=== PATIENT | female | born 1995 | race Caucasian/White ===

== ENCOUNTER → 2018-03-19 12:35 | Outpatient (CLI) | payer SELFPAY ==
[2018-03-19 13:25] LABS: Eosinophils # 0.1 K/mm3 (0.0-0.4); Eosinophils % 0.8 % (0.1-12.0); Hemoglobin 11.4 g/dL (12.2-16.2); Lymphocytes % 25.1 % (10-50); Mean Corpuscular HGB Conc 30.9 g/dL (31.8-35.4); Mean Corpuscular Hemoglobin 24.7 pg (27.0-31.2); Mean Corpuscular Volume 80.1 fl (81-99); Mean Platelet Volume 7.6 fl (7.4-10.4); Monocytes # 0.3 K/mm3 (0.1-1.0); Monocytes % 3.5 % (1.7-9.3); Neutrophils # 5.8 K/mm3 (1.8-7.8); Neutrophils % 70.6 % (37.0-80.0); Platelet Count 320 K/mm3 (142-424); Red Blood Count 4.62 M/mm3 (4.20-5.40); White Blood Count 8.1 K/mm3 (4.8-10.8)
[2018-03-19 14:47] LABS: Alanine Aminotransferase 21 U/L (12-78); Albumin Level 3.8 gm/dL (3.4-5.0); Alkaline Phosphatase 84 U/L (46-116); Aspartate Amino Transferase 17 U/L (15-37); Bilirubin,Total 0.4 mg/dL (0.2-1.0); Blood Urea Nitrogen 12 mg/dL (7-18); Calcium 8.5 mg/dL (8.5-10.1); Carbon Dioxide 23 mmol/L (21.0-32.0); Chloride 102 mmol/L (98-107); Creatinine,Serum 0.83 mg/dL (0.55-1.02); Estimated Glomerular Filt Rate 86 ml/min (>60); Free T4 (Free Thyroxine) 0.85 ng/dl (0.76-1.46); GFR (African American) 104 ML/MIN (>60); Globulin 3.7 gm/dl (1.3-3.2); Glucose 91 mg/dL (74-106); Sodium 138 mmol/L (136-145); Thyroid Stimulating Hormone 0.65 uIU/ml (0.358-3.740); Total Protein,Serum 7.5 gm/dL (6.4-8.2)
[2018-03-20 09:43] LABS: Thyroid Peroxidase Antibodies 457 IU/mL (0-34)
[2018-03-21 06:54] LABS: Antinuclear Antibodies, IFA Negative (.); Thyroglobulin Level 6.6 IU/mL (0.0-0.9)
[2018-04-09 17:19] LABS: Beef (Bos spp) IgE <0.10 kU/L (<0.35); Lamb/Mutton (Ovis spp) IgE <0.10 kU/L (<0.35)
== END ==
PROVIDERS: Visit Provider Allergy & Immunology
DX: L50.8 Other urticaria (principal)
CPT/HCPCS: 36415; 80053; 83520; 84439; 84443; 85025; 86003; 86008; 86038; 86352; 86376; 86800

== ENCOUNTER 2020-12-17 10:30 | Emergency (ER) | payer BC, SELFPAY ==
[2020-12-17 11:30] VITALS: BP 142/88; PULSE 94; RESP 21; TEMP 37.1; O2SAT 97; BMI 38.0
--- NOTE | 2020-12-17 11:53 | HMH.EDUTC ---
[facility] Disposition Clinical Impression: Exposure to COVID-19 virus Disposition: Home, Self-Care Condition on Discharge: Good Instructions: DI for COVID-19 (Suspected or Confirmed ), Preventing the Spread of Coronavirus Discharge Instructions Additional Instructions: *Monitor Temp, Over the counter Motrin or Tylenol as directed/as needed Tylenol every 4 hours and Motrin every 6 hours (as long as your family doctor has told you that you can take it) for fever or pain. and straight to ER if unable to lower temp less than 101.0 after medication given *Warm salt water gargles may help to soothe the throat *Throat Lozenges *Warm fluids like tea with honey may help to soothe the throat *Sleep elevated *Humidifier/Vaporizer Follow up IMMEDIATELY for new or worsening symptoms or no Noticeable improvement over the next 48-72 hours. 911 for difficulty breathing or swallowing You were tested for today for COVID19 your test result should be back in the next 24-48 hours, You was given written instructions for [facility] portal you can see your results there when they come back you may check it often to see if they are done You was given a handout with instructions for Self Quarantine and Self isolation for while you wait on test results and what to do if they are positive If you are positive the Health Dept will be contacting you also Make sure to take your Vitamins Vit. C Vit D and Zinc if you can take them Referrals: Vito Brooks [Primary Care Provider] - As needed Forms: Work/School Release Medical Decision Making - Beltran Inquiry Pt receiving controlled substance: No Beltran was queried for this patient: No Vital Signs: 12/17/20 11:30 Temperature 98.7 F Temperature Source Oral Pulse Rate [Right Brachial] 94 H Respiratory Rate 21 Blood Pressure [Right Arm] 142/88 H Blood Pressure Mean [Right Arm] 106 Blood Pressure Source [Right Arm] Automatic Cuff Blood Pressure Position [Right Arm] Sitting 02 Sat by Pulse Oximetry 97 Oxygen Delivery Method Room Air Orders (Tests/Meds): ORDERS Category Date Time Status Covid-19 Nasal PCR ([facility]) Routine Lab 12/17/20 11:31 Ordered [facility] HPI - General Stated complaint: covid exposure test Time Seen by Provider: 12/17/20 11:53 Mode of Arrival: Ambulatory Source of Information: Patient Limitations: No Limitations Description of Symptoms (Recalled from Triage Doc. by RN): COVID TEST D/T EXPOSURE. C/O CONGESTION, RUNNY NOSE AND HEADACHE HEENT Symptoms (Recalled from RN notes): Yes Resp Symptoms (Recalled from RN notes): No Skin Symptoms (Recalled from RN notes): No MS Symptoms (Recalled from RN notes): No Functional Status (Recalled from RN notes): WNL - History of Present Illness Provider Complaint: Patient states that recently tested positive for COVID now she is having symptoms also States that she is having nasal congestion, and throat irritationStates that she has not been having any SOA but wanted to get tested - Related Data Allergies Allergy/AdvReac Type Severity Reaction Status Date / Time No Known Allergies Allergy Verified 09/05/17 17:19 - Worker's Comp Is this a Worker's Comp case?: No [facility] History - Hepatitis A Screen Drug use history?: No High risk sexual behaviors?: No History of sexually transmitted infection?: No Currently employed?: No Childcare worker?: No Do you have indoor plumbing?: Yes Do you have electricity?: Yes Attestation statement:: This patient has been screened for Hepatitis A risk factors. I have reviewed the patient's past medical history: Yes Medical History: Denies:: Cancer, Diabetes Mellitus Type 1, Diabetes Mellitus Type 2, Hypertension, MRSA Other Medical History: Denies: Other (allergies) Other Surgeries: Yes: No Previous Surgery Amputation: No Fractures: No - Social History Smoking Status: Never smoker Tobacco Type: cigarettes # Packs/Day (cigarettes): 1 Alcohol Intake: never Family Hx:: No si
[2020-12-17 12:03] VITALS: BP 142/88; PULSE 94; RESP 21; TEMP 37.1; O2SAT 97
--- NOTE | 2020-12-18 12:16 | PC.NURSE ---
PT NOTIFIED OF POSITIVE COVID RESULT
== END 2020-12-17 12:05 | disposition home or self-care (01) ==
PROVIDERS: Emergency Provider Nurse Practitioner; PCP Family Medicine
DX: Z20.822 Contact with and (suspected) exposure to COVID-19 (principal); R51.9 Headache, unspecified; R09.89 Other specified symptoms and signs involving the circulatory and respiratory systems
CPT/HCPCS: 99202; G0463; U0003

== ENCOUNTER → 2021-04-03 20:30 | Outpatient (CLI) | payer BC, SELFPAY | PROVIDERS: PCP Family Medicine; Visit Provider Nurse Practitioner | DX: Z20.822 Contact with and (suspected) exposure to COVID-19 (principal) | CPT/HCPCS: C9803; U0003; U0005 ==

== ENCOUNTER → 2021-05-11 11:23 | Outpatient (CLI) | payer BC, SELFPAY ==
[2021-05-12 13:06] LABS: Covid-19 Nasal PCR Sendout Lex POSITIVE
== END ==
PROVIDERS: Visit Provider Nurse Practitioner
DX: U07.1 COVID-19 (principal)
CPT/HCPCS: C9803; U0004; U0005

== ENCOUNTER 2021-08-25 18:32 | Emergency (ER) | payer BC, SELFPAY ==
[2021-08-25 18:32] VITALS: BP 121/73; PULSE 89; RESP 16; TEMP 36.7; O2SAT 100; BMI 34.0
--- NOTE | 2021-08-25 18:37 | PC.NURSE ---
patient ambulatory to restroom without complications to provide urine sample
--- NOTE | 2021-08-25 18:42 | PC.NURSE ---
JACINTO sent to lab; No Felix, RN at
[2021-08-25 18:45] LABS: Microscopic, Urine URINE MICROSCOPIC (MICROSCOPIC)
[2021-08-25 18:50] LABS: Appearance,Urine CLEAR (Clear); Bilirubin,Urine Negative (Negative); Blood, Urine Negative (Negative); Color,Urine YELLOW (Yellow); Glucose,Urine (UA) Negative (Negative); Ketones,Urine Negative (Negative); Leukocyte Esterase,Urine Negative (Negative); Nitrate,Urine Negative (Negative); Protein,Urine Negative (Negative); Specific Gravity, Urine >= 1.030 (1.005-1.030); Urobilinogen,Urine 0.2 EU/dl (0.2)
[2021-08-25 18:56] LABS: Mucus,Urine 2+ /lpf; Urine Pregnancy, HCG Qual. Negative (Negative)
--- NOTE | 2021-08-25 18:58 | CT_ITS ---
PROCEDURE INFORMATION: Exam: CT Abdomen And Pelvis With Contrast Exam date and time: 08/25/2021 7:09 PM Age: 25 years old Clinical indication: Abdominal pain; Epigastric; Prior surgery; Additional info: Epigastric pain TECHNIQUE: Imaging protocol: Computed tomography of the abdomen and pelvis with contrast. Radiation optimization: All CT scans at this facility use at least one of these dose optimization techniques: automated exposure control; mA and/or kV adjustment per patient size (includes targeted exams where dose is matched to clinical indication); or iterative reconstruction. Contrast material: ISOVUE; Contrast volume: 75 ml; Contrast route: IV; COMPARISON: PRCOE US PREG COMP 10/11/2016 1:05 PM FINDINGS: Liver: Normal. No mass. Gallbladder and bile ducts: Calcified gallstones within the gallbladder lumen. Pancreas: Normal enhancement. No ductal dilation. Spleen: No splenomegaly. Adrenal glands: No mass. Kidneys and ureters: No hydronephrosis. Stomach and bowel: No obstruction. No mucosal thickening. Appendix: No evidence of appendicitis. Intraperitoneal space: No free air. No significant fluid collection. Vasculature: No abdominal aortic aneurysm. Lymph nodes: No enlarged lymph nodes. Urinary bladder: No acute abnormality. Reproductive: 2.5 cm right ovarian follicle. Fluid within the endometrial canal. Bones/joints: S shaped curvature of the spine. No fracture. Soft tissues: Extensive subcutaneous adipose extending beyond the field of view. IMPRESSION: No acute findings.
--- NOTE | 2021-08-25 18:58 | HMH.EDGENADL ---
ED Disposition Clinical Impression: Epigastric pain Disposition: Home, Self-Care Condition on Discharge: Good Instructions: DI for Acute Abdominal Pain, Fat-Restricted Diet Additional Instructions: Pepcid as prescribed. Follow-up with your primary care provider to arrange outpatient gallbladder ultrasound. Low-fat diet. Additional instructions for ABDOMINAL PAIN: See your physician as soon as possible for further evaluation. Return immediately if worsening abdominal pain, vomiting, shortness of breath, fever, vomiting of blood or abdominal distention. Prescriptions: Famotidine [Pepcid 20mg Tablet] 20 mg PO BID 5 Days #10 tab Transmission Status: Pending to [facility] Referrals: Vito Brooks [Primary Care Provider] - - Critical Care Critical Care Time: No Attestation: On 08/25/21, the high probability of a clinically significant, sudden or life threatening deterioration of the following system(s) required my full and direct attention, intervention and personal management. The time I documented below is in addition to time spent performing reported procedures but includes the following listed in this critical care notation. Medical Decision Making - Beltran Inquiry Pt receiving controlled substance: No Vital Signs: 08/25/21 18:32 Temperature 98.1 F Temperature Source Oral Pulse Rate [Right] 89 Respiratory Rate 16 Blood Pressure [Right Arm] 121/73 Blood Pressure Mean [Right Arm] 89 Blood Pressure Source [Right Arm] Automatic Cuff Blood Pressure Position [Right Arm] Sitting 02 Sat by Pulse Oximetry 100 Oxygen Delivery Method Room Air - Lab Data Lab Results 08/25/21 18:41: Urine Color Yellow, Urine Appearance Clear, Urine pH 5.0, Ur Specific [place] >= 1.030, Urine Protein Negative, Urine Glucose (UA) Negative, Urine Ketones Negative, Urine Blood Negative, Urine Nitrate Negative, Urine Bilirubin Negative, Urine Urobilinogen 0.2, Ur Leukocyte Esterase Negative, Urine WBC 3-5, Ur Squamous Epith Cells 5-10, Urine Mucus 2+ 08/25/21 18:41: Urine HCG, Qual Negative 08/25/21 18:50: WBC 10.9 H, RBC 5.03, Hgb 13.9, Hct 41.1, MCV 81.7, MCH 27.6, MCHC 33.8, RDW 13.6, Plt Count 285, MPV 8.9, Neut % (Auto) 64.1, Lymph % (Auto) 29.3, [place] % (Auto) 4.9, Eos % (Auto) 0.2, Baso % (Auto) 1.6, Neut # (Auto) 7.0, Lymph # (Auto) 3.2, [place] # (Auto) 0.5, Eos # (Auto) 0.0, Baso # (Auto) 0.2 08/25/21 18:50: Sodium 136, Potassium 3.8, Chloride 104, Carbon Dioxide 24, Anion Gap 11.8, BUN 15, Creatinine 0.60, Estimated Creat Clear 197, Estimated GFR 122, Est GFR ( Amer) 147, Glucose 106 H, Calcium 9.6, Total Bilirubin 0.6, AST 41 H, ALT 24, Alkaline Phosphatase 91, Total Protein 7.1, Albumin 4.1, Globulin 3.0, Albumin/Globulin Ratio 1.4 08/25/21 18:50: Lipase 135 Result diagrams: 08/25/21 18:50 08/25/21 18:50 Orders (Tests/Meds): ED MEDICATIONS Generic Name Dose Route Start Last Admin Trade Name Freq PRN Reason Stop Dose Admin Sodium Chloride 1,000 mls @ 999 mls/hr 08/25/21 19:00 08/25/21 19:00 Sod Chlor 0.9% 1000ml Bag IV 08/25/21 20:00 999 mls/hr .Q1H1M RANDALL Administration Sodium Chloride 10 ml 08/25/21 18:58 Sodium Chloride 0.9% 10ml Flush Syringe IV 09/24/21 18:57 NEEDED PRN Maintain IV Site Sodium Chloride 8 ml 08/25/21 19:06 Sodium Chloride 0.9% 10ml Vial IV 09/24/21 19:05 NEEDED PRN dilute pepcid Discontinued Medications Generic Name Dose Route Start Last Admin Trade Name Freq PRN Reason Stop Dose Admin Famotidine 20 mg 08/25/21 19:06 08/25/21 19:47 Famotidine 20mg/2ml Vial IV 08/25/21 19:07 20 mg ONCE ONE Administration Iopamidol 75 ml 08/25/21 19:28 08/25/21 19:28 Iopamidol-370 (76%);100ml Bottle IV 08/25/21 19:29 75 ml ONCE ONE Administration Sodium Chloride 10 ml 08/25/21 19:28 08/25/21 19:28 Sodium Chloride 0.9% 10ml Syr (Rad Only) IV 08/25/21 19:29 10 ml ONCE ONE Administration -
[2021-08-25 19:07] LABS: Basophils # 0.2 K/mm3 (0-0.2); Basophils % 1.6 % (0.1-2.0); Chloride 104 mmol/L (98-107); Eosinophils % 0.2 % (0.1-12.0); Hematocrit 41.1 % (37.0-47.0); Hemoglobin 13.9 g/dL (12.2-16.2); Lymphocytes # 3.2 K/mm3 (0.7-4.5); Lymphocytes % 29.3 % (10-50); Mean Corpuscular HGB Conc 33.8 g/dL (31.8-35.4); Mean Corpuscular Hemoglobin 27.6 pg (27.0-31.2); Mean Corpuscular Volume 81.7 fl (81-99); Mean Platelet Volume 8.9 fl (7.4-10.4); Monocytes # 0.5 K/mm3 (0.1-1.0); Monocytes % 4.9 % (1.7-9.3); Neutrophils % 64.1 % (37.0-80.0); Platelet Count 285 K/mm3 (142-424); Potassium 3.8 mmoL/L (3.5-5.1); Red Blood Count 5.03 M/mm3 (4.20-5.40); Red Cell Distribution Width 13.6 % (11.5-17.5); Sodium 136 mmol/L (136-145); White Blood Count 10.9 K/mm3 (4.8-10.8)
[2021-08-25 19:09] LABS: Blood Urea Nitrogen 15 mg/dl (7-17); Creatinine Clearance Estimated 197 mL/min (50-200); Estimated Glomerular Filt Rate 122 ml/min (>60); GFR (African American) 147 ML/MIN (>60)
[2021-08-25 19:10] LABS: Alanine Aminotransferase 24 U/L (12-78); Albumin Level 4.1 g/dl (3.5-5.0); Albumin/Globulin Ratio 1.4 (1.1-1.8); Alkaline Phosphatase 91 U/L (38-126); Anion Gap 11.8 mEq/L (5-15); Aspartate Amino Transferase 41 U/L (14-36); Bilirubin,Total 0.6 mg/dl (0.2-1.3); Calcium 9.6 mg/dl (8.4-10.2); Carbon Dioxide 24 mmol/L (22.0-30.0); Glucose 106 mg/dl (74-100); Total Protein,Serum 7.1 g/dl (6.3-8.2)
[2021-08-25 19:19] LABS: Lipase 135 U/L (23-300)
[2021-08-25 20:19] VITALS: BP 120/71; PULSE 88; RESP 16; TEMP 36.7; O2SAT 100
== END 2021-08-25 20:22 | disposition home or self-care (01) ==
PROVIDERS: Emergency Provider Emergency Medicine; PCP Family Medicine
DX: R10.13 Epigastric pain (principal)
CPT/HCPCS: 74177; 80053; 81001; 81025; 83690; 85025; 96365; 96375; 99284; Q9967

== ENCOUNTER 2021-12-23 19:54 | Observation (INO) | payer BC, SELFPAY ==
[2021-12-23] VITALS (8 sets, daily range): BP systolic 106–130; BP diastolic 64–76; PULSE 68–78; RESP 16; TEMP 38.2; O2SAT 96–99; BMI 34.3
[2021-12-23 20:30] LABS: Basophils # 0.1 K/mm3 (0-0.2); Basophils % 0.9 % (0.1-2.0); Eosinophils % 0.1 % (0.1-12.0); Hematocrit 42.4 % (37.0-47.0); Hemoglobin 13.9 g/dL (12.2-16.2); Lymphocytes # 1.6 K/mm3 (0.7-4.5); Lymphocytes % 17.1 % (10-50); Mean Corpuscular HGB Conc 32.9 g/dL (31.8-35.4); Mean Corpuscular Hemoglobin 27.7 pg (27.0-31.2); Mean Corpuscular Volume 84.2 fl (81-99); Mean Platelet Volume 8.9 fl (7.4-10.4); Monocytes # 0.3 K/mm3 (0.1-1.0); Neutrophils # 7.3 K/mm3 (1.8-7.8); Neutrophils % 78.9 % (37.0-80.0); Platelet Count 289 K/mm3 (142-424); Red Blood Count 5.03 M/mm3 (4.20-5.40); Red Cell Distribution Width 14.8 % (11.5-17.5); White Blood Count 9.3 K/mm3 (4.8-10.8)
[2021-12-23 20:35] LABS: Coronavirus 19, PCR Not Detected (NotDetected); Influenza A, PCR Not Detected (NotDetected); Influenza B, PCR Not Detected (NotDetected)
[2021-12-23 20:35] LABS: Urine Pregnancy, HCG Qual. Negative (Negative)
[2021-12-23 20:40] LABS: Chloride 106 mmol/L (98-107); Potassium 3.7 mmoL/L (3.5-5.1); Sodium 140 mmol/L (136-145)
[2021-12-23 20:42] LABS: Blood Urea Nitrogen 10 mg/dl (7-17)
[2021-12-23 20:43] LABS: Alanine Aminotransferase 21 U/L (12-78); Albumin Level 4.6 g/dl (3.5-5.0); Albumin/Globulin Ratio 1.3 (1.1-1.8); Alkaline Phosphatase 138 U/L (38-126); Anion Gap 12.7 mEq/L (5-15); Aspartate Amino Transferase 53 U/L (14-36); Bilirubin,Total 0.3 mg/dl (0.2-1.3); Calcium 8.2 mg/dl (8.4-10.2); Carbon Dioxide 25 mmol/L (22.0-30.0); Creatinine Clearance Estimated 118 mL/min (50-200); Estimated Glomerular Filt Rate 67 ml/min (>60); GFR (African American) 81 ML/MIN (>60); Globulin 3.5 g/dL (1.3-3.2); Glucose 96 mg/dl (74-100); Total Protein,Serum 8.1 g/dl (6.3-8.2)
--- NOTE | 2021-12-23 20:44 | HMH.EDHA ---
Discharge Plan Disposition Chief Complaint: Headache Clinical Impressions Clinical Impression: Meningitis Discharge ED Provider: Uziel Babin Headache HPI General Chief Complaint: Headache Stated Complaint: [id number] Time Seen by Provider: 12/23/21 20:44 Mode of Arrival: Ambulatory Source of Information: Patient and Medical Record Limitations: No Limitations Description of Symptoms (Recalled from ER Triage Doc. by RN): HEADACHE X 3 DAYS, NAUSEA, GENERALIZED ACHES, INTERMITT DIARRHEA (PT STATES ONLY IN THE MORNINGS) History of Present Illness HPI Narrative: acute diffuse hutton with nausea and neck pain w/o fever/rash or trauma - has exposed to child with prob virus - no known hutton hx prior -has neck pain also and fever MD Complaint: headache Onset (ago): day(s) Onset description: gradual Location: diffuse Severity: moderate Quality: different than previous headaches Exacerbating factors: movement of head/neck Associated symptoms: fever Treatments prior to arrival: acetaminophen Related Data Home Medications Medication Instructions Recorded Confirmed methimazole 10 mg tablet 20 mg PO BID GRAVES DISEASE. 12/24/21 12/24/21 Allergies Allergy/AdvReac Type Severity Reaction Status Date / Time No Known Allergies Allergy Verified 09/05/17 17:19 [facility] History Hepatitis A Screen Attestation statement:: This patient has been screened for Hepatitis A risk factors. I have reviewed the patient's past medical history: Yes Medical History: Denies: Cancer, Diabetes Mellitus Type 1, Diabetes Mellitus Type 2, Hypertension or MRSA Other Medical History: Denies Other (allergies) Other Surgeries: Yes No Previous Surgery Amputation: No Fractures: No Social History Smoking Status: Current every day smoker Tobacco Type: cigarettes # Packs/Day (cigarettes): 1 Alcohol Intake: never Family Hx:: No significant family history Comment: Both Pt parents living [employer] history[facility] Medical History (Updated 12/24/21 @ 00:34 by Uziel Babin MD) Graves disease Social History Smoking Status: Current every day smoker tobacco type: cigarettes packs per day: 1 alcohol intake: never current occupational status: employed Travel in the last 8 weeks: None ROS Obtained: Yes All systems reviewed & no additional complaints except as documented Constitutional Constitutional: Reports fever(s) and Reports headache(s) Eyes Eyes: Denies eye discharge ENT Ears, Nose, Mouth, and Throat: Reports as per HPI, Denies dizziness, Denies dysphagia and Reports headache(s) Cardiovascular Cardiovascular: Denies chest pain with activity Respiratory Respiratory: Denies cough Gastrointestinal Gastrointestingal: Denies dysphagia Genitourinary Female Genitourinary: Denies urinary incontinence Musculoskeletal Musculoskeletal: Denies arthralgias Integumentary/Breasts Skin/Breast: Denies lesions, Denies photosensitivity and Denies rash Neurologic Neurologic: Reports as per HPI, Denies abnormal speech, Denies behavioral changes, Denies dizziness and Reports headache(s) Physical Exam General General appearance: alert Head Head exam: normocephalic Eye Eye exam: Present PERRL and EOMI; Absent scleral icterus ENT ENT exam: Present normal oropharynx and mucous membranes moist Neck Neck exam: Present trachea midline and tenderness; Absent meningismus Respiratory Respiratory exam: Present normal lung sounds bilaterally; Absent respiratory distress Cardiovascular Cardiovascular exam: Present regular rate; Absent systolic murmur Abdominal Exam Abdominal exam: Present soft; Absent tenderness Extremities Exam Extremities exam: Present full ROM Neurological Exam Neurological exam: Present alert, oriented X3 and CN II-XII intact Expanded Neurological Exam Patient oriented to: Present person, place and time Coma scale eye opening: Spontaneous Coma scale motor response: Obeys commands Coma scale verbal response: Oriented Coma sca
[2021-12-23 20:49] LABS: C-Reactive Protein 19.3 mg/L (0-4)
--- NOTE | 2021-12-23 20:49 | PC.NURSE ---
at speaking with pt about POC
[2021-12-23 20:57] LABS: Erythrocyte Sedimentation Rate 16 mm/hr (0-20)
[2021-12-23 21:01] LABS: Microscopic, Urine URINE MICROSCOPIC (MICROSCOPIC)
[2021-12-23 21:04] LABS: Procalcitonin 0.054 ng/mL (0.0-2.0)
[2021-12-23 21:04] LABS: Appearance,Urine CLEAR (Clear); Bilirubin,Urine Negative (Negative); Blood, Urine TRACE-I (Negative); Color,Urine YELLOW (Yellow); Glucose,Urine (UA) Negative (Negative); Ketones,Urine Negative (Negative); Leukocyte Esterase,Urine Negative (Negative); Nitrate,Urine Negative (Negative); Protein,Urine Negative (Negative); Specific Gravity, Urine 1.025 (1.005-1.030); Urobilinogen,Urine 0.2 EU/dl (0.2)
--- NOTE | 2021-12-23 21:08 | PC.NURSE ---
DR GARCIA AT BEDSIDE TO DISCUSS LUMBAR PUNCTURE. PT VERBALIZES UNDERSTANDING. CONSENT OBTAINED. NO ACUTE DISTRESS NOTED.
[2021-12-23 21:17] LABS: Lactic Acid 0.8 mmol/L (0.7-2.1)
[2021-12-23 21:20] LABS: Bacteria,Urine 1+ /lpf; WBC,Urine Occasional #/hpf (0-3)
--- NOTE | 2021-12-23 21:46 | CT_ITS ---
PROCEDURE INFORMATION: Exam: CT Head Without Contrast Exam date and time: 12/23/2021 10:04 PM Age: 26 years old Clinical indication: Pain; Headache not specified; Additional info: Headache, neck pain TECHNIQUE: Imaging protocol: Computed tomography of the head without contrast. Radiation optimization: All CT scans at this facility use at least one of these dose optimization techniques: automated exposure control; mA and/or kV adjustment per patient size (includes targeted exams where dose is matched to clinical indication); or iterative reconstruction. COMPARISON: No relevant prior studies available. FINDINGS: Brain: Normal. No hemorrhage. Unremarkable white matter. No mass effect. Cerebral ventricles: No ventriculomegaly. Paranasal sinuses: Visualized sinuses are unremarkable. No fluid levels. Mastoid air cells: Visualized mastoid air cells are well aerated. Bones/joints: Unremarkable. No acute fracture. Soft tissues: Unremarkable. IMPRESSION: No acute intracranial abnormality.
[2021-12-23 22:12] LABS: Glucose,CSF 46 mg/dl (40-70)
--- NOTE | 2021-12-23 22:17 | PC.NURSE ---
TIFFANI AT BEDSIDE. LUMBAR PUNCTURE PROCEDURE REVIEWED. CONSENT UPDATED. LUMBAR PUNCTURE PERFORMED. PT TOLERATED WELL.
[2021-12-23 22:33] LABS: Appearance,CSF Clear (Clear); Red Blood Cell,CSF 1 cells/uL (0); Volume,CSF 6 mL
[2021-12-23 22:46] LABS: White Blood Cell,CSF 94 cells/uL (0-5)
[2021-12-23 23:03] LABS: Mononuclear WBCs,CSF 100 %; Polynuclear WBCs,CSF 0 %
--- NOTE | 2021-12-23 23:14 | PC.NURSE ---
PT REPORTS THAT HER HEADACHE HAS IMPROVED BUT IS STILL PRESENT. MEDICATIONS GIVEN ORDERED.
--- NOTE | 2021-12-23 23:33 | PC.NURSE ---
Addendum entered by Daria Melendez, EMT 12/23/21 23:38: Dr. Watters paged Original Note: Dr. Watters
--- NOTE | 2021-12-23 23:39 | PC.NURSE ---
Dr. Babin s/w Dr. Watters to admit to service
--- NOTE | 2021-12-23 23:39 | PC.NURSE ---
speaking to Dr. Watters
--- NOTE | 2021-12-23 23:49 | PC.NURSE ---
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
[2021-12-24] VITALS (8 sets, daily range): BP systolic 112–143; BP diastolic 68–78; PULSE 62–87; RESP 16–19; TEMP 36.7–37.2; O2SAT 96–100; BMI 34.2
--- NOTE | 2021-12-24 00:42 | PC.NURSE ---
PT MADE AWARE THAT REPORT HAS BEEN CALLED AND SHE IS WAITING ON TRANSPORT.
--- NOTE | 2021-12-24 00:54 | PC.NURSE ---
PT ARRIVED TO FLOOR VIA W/C @ [id number]
--- NOTE | 2021-12-24 01:01 | PC.NURSE ---
pt admitted to 219 from ER by wheelchair
--- NOTE | 2021-12-24 06:45 | PC.NURSE ---
pt has rested since admission this am, pt hasn't c/o headache since prior to being admitted to 219, pt's vss, pt ambulating to bathroom with standby assist, NS @ 125mL/hr running, call rivers within reach
[2021-12-24 07:56] LABS: Basophils # 0.1 K/mm3 (0-0.2); Basophils % 1.7 % (0.1-2.0); Eosinophils % 0.1 % (0.1-12.0); Hematocrit 37.4 % (37.0-47.0); Hemoglobin 12.6 g/dL (12.2-16.2); Lymphocytes # 2.2 K/mm3 (0.7-4.5); Lymphocytes % 35.9 % (10-50); Mean Corpuscular HGB Conc 33.6 g/dL (31.8-35.4); Mean Corpuscular Hemoglobin 28.3 pg (27.0-31.2); Mean Corpuscular Volume 84.2 fl (81-99); Mean Platelet Volume 9.4 fl (7.4-10.4); Monocytes # 0.5 K/mm3 (0.1-1.0); Neutrophils # 3.4 K/mm3 (1.8-7.8); Neutrophils % 54.4 % (37.0-80.0); Platelet Count 234 K/mm3 (142-424); Red Blood Count 4.44 M/mm3 (4.20-5.40); Red Cell Distribution Width 14.9 % (11.5-17.5); White Blood Count 6.2 K/mm3 (4.8-10.8)
[2021-12-24 08:03] LABS: Anion Gap 11.8 mEq/L (5-15); Blood Urea Nitrogen 10 mg/dl (7-17); Calcium 7.9 mg/dl (8.4-10.2); Carbon Dioxide 19 mmol/L (22.0-30.0); Chloride 110 mmol/L (98-107); Creatinine Clearance Estimated 147 mL/min (50-200); Estimated Glomerular Filt Rate 87 ml/min (>60); GFR (African American) 105 ML/MIN (>60); Glucose 81 mg/dl (74-100); Potassium 3.8 mmoL/L (3.5-5.1); Sodium 137 mmol/L (136-145)
--- NOTE | 2021-12-24 08:10 | EXP.PHA.VTE ---
[facility] Pharm[facility] VTE Monitoring Patient Demographics Admission date: 12/24/21 Report Date: 12/24/21 Time: 08:10 Patient Allergies No Known Allergies Allergy (Verified 09/05/17 17:19) Height: 1.6 m Weight: 87.543 kg Current Active Problems (Updated 12/24/21 @ 00:34 by Uziel Babin MD) Meningitis (Acute) VTE Risk Labs: VTE Related Lab Results Hgb 12.6 g/dL (12.2-16.2) 12/24/21 06:42 Hct 37.4 % (37.0-47.0) 12/24/21 06:42 Plt Count 234 K/mm3 (142-424) 12/24/21 06:42 BUN 10 mg/dl (7-17) 12/24/21 06:42 Creatinine 0.80 mg/dl (0.52-1.04) 12/24/21 06:42 Estimated Creat Clear 147 mL/min (50-200) 12/24/21 06:42 Prophylaxis VTE Prophylaxis Ordered?: Yes Types of VTE Prophylaxis: TEDS Knee High Location of Applied Device: Bilateral Lower Extremeties
--- NOTE | 2021-12-24 08:11 | HMH.PHAINT1 ---
Pharmacy Intervention Comments: MEDICATION RECONCILIATION COMPLETED ON PATIENT USING EXTERNAL FILL HISTORY FROM PHARMACY. -RODDY ANDERSEN, MARCELINOD
--- NOTE | 2021-12-24 14:14 | EXP.HP ---
History of Present Illness *Admission Date: 12/24/21 *Reason for visit:: Headache and fever *History of present illness: Shanon is a 26-year-old white female with a history of Graves' disease who presented to the ER last evening with a 2-day history of malaise, fever, neck pain, and headache unrelieved with Tylenol and ibuprofen. Her son had experienced a brief febrile illness earlier in the week. He did not seek medical attention and seems to be fine now. Work-up in the emergency room including CT scan of the head and routine blood work was nonrevealing. Because of her presenting complaints, a lumbar puncture was performed which revealed 94 white blood cells with 100% mononuclear leukocytes. With these findings, she has been admitted with a diagnosis of viral meningitis pending final results of cultures. She has empirically been started on IV Rocephin. Incidentally, of note, she is scheduled to have her gallbladder removed on Saturday in [facility]. [facility] Medical History (Updated 12/24/21 @ 14:33 by Yaw Watters MD) Gallbladder calculus Graves disease Family History (Updated 12/24/21 @ 01:36 by Roro Brumfield RN) Breast CA Social History (Updated 12/24/21 @ 01:37 by Roro Brumfield RN) Smoking Status: Current every day smoker tobacco type: cigarettes packs per day: 1 alcohol intake: former current occupational status: employed Travel in the last 8 weeks: None Review of Systems Constitutional Constitutional: Reports headache(s) (global in nature) Eyes Eyes: Denies change in vision and Reports other (hurts to move her eyes) ENT Ears, Nose, Mouth, and Throat: Denies dizziness, Denies otalgia, Reports headache(s) (global in nature) and Denies sore throat *Cardiovascular Cardiovascular: Denies chest pain, Denies dyspnea, Denies leg edema and Denies palpitations *Respiratory Respiratory: Denies chest congestion, Denies cough and Denies dyspnea *Gastrointestinal Gastrointestinal: Denies abdominal pain, Denies change in bowel habits and Reports nausea *Genitourinary Genitourinary: Denies abnormal vaginal bleeding, Denies dysuria and Denies vaginal discharge *Musculoskeletal Musculoskeletal: Denies arthralgias and Denies joint swelling Integumentary/Breasts Skin/Breast: Denies change in pigmentation and Denies rash *Neurologic Neurologic: Reports as per HPI, Denies convulsions, Denies dizziness, Reports headache(s) (global in nature) and Denies tremor(s) Endocrine Endocrine: Denies cold intolerance, Denies flushing, Denies heat intolerance and Denies palpitations Meds Home Medications and Allergies Home Medications Medication Instructions Recorded Confirmed Type methimazole 10 mg tablet 20 mg PO BID GRAVES DISEASE 12/24/21 12/24/21 History New Prescriptions to Start Prescriptions: Allergies Allergy/AdvReac Type Severity Reaction Status Date / Time No Known Allergies Allergy Verified 09/05/17 17:19 Exam Data for Last 24 hours Vital signs and Labs for Last 24 Hours: Temp Pulse Resp BP Pulse Ox 98.3 F 67 16 112/68 98 12/24/21 08:00 12/24/21 08:00 12/24/21 08:00 12/24/21 08:00 12/24/21 08:00 Laboratory Results - last 24 hr 12/23/21 20:03: Urine HCG, Qual Negative 12/23/21 20:03: Urine Color Yellow, Urine Appearance Clear, Urine pH 6.0, Ur Specific [place] 1.025, Urine Protein Negative, Urine Glucose (UA) Negative, Urine Ketones Negative, Urine Blood Trace-i, Urine Nitrate Negative, Urine Bilirubin Negative, Urine Urobilinogen 0.2, Ur Leukocyte Esterase Negative, Urine RBC 3-5, Urine WBC Occasional, Ur Squamous Epith Cells 10-20, Urine Bacteria 1+ 12/23/21 20:08: SARS-CoV-2 (PCR) Not detected, Influenza A Untype (PCR) Not detected, Influenza Type B (PCR) Not detected 12/23/21 20:17: WBC 9.3, RBC 5.03, Hgb 13.9, Hct 42.4, MCV 84.2, MCH 27.7, MCHC 32.9, RDW 14.8, Plt Count 289, MPV 8.9, Neut % (Auto) 78.9, Lymph % (Auto) 17.1, [place] % (Auto) 3.0, Eos % (Aut
[2021-12-24 16:47] LABS: Adenovirus,PCR Not Detected (NotDetected); Bordetella Pertussis Not Detected (NotDetected); Chlamydophila Pneumoniae, PCR Not Detected (NotDetected); Coronavirus 229E Not Detected (NotDetected); Coronavirus NL63 Not Detected (NotDetected); Coronavirus OC43 Not Detected (NotDetected); Coronovirus HKU1,PCR Not Detected (NotDetected); Human Metapneumovirus Not Detected (NotDetected); Influenza A, PCR Not Detected (NotDetected); Influenza AH1, 2009 Not Detected (NotDetected); Influenza AH1, PCR Not Detected (NotDetected); Influenza AH3,PCR Not Detected (NotDetected); Influenza B, PCR Not Detected (NotDetected); Mycoplasma Pneumoniae, PCR Not Detected (NotDetected); Parainfluenza 1, PCR Not Detected (NotDetected); Parainfluenza 2, PCR Not Detected (NotDetected); Parainfluenza 3, PCR Not Detected (NotDetected); Parainfluenza 4, PCR Not Detected (NotDetected); Respiratory Syncytial Virus Not Detected (NotDetected); Rhinovirus/Enterovirus Not Detected (NotDetected)
--- NOTE | 2021-12-24 18:43 | PC.NURSE ---
shift summary: Pt has done well this shift. GCS 15. Headache and neck pain/stiffness noted earlier in the day, has improved throughtout shift. Tylenol 650mg po given once. On RA. VSS. NS infusing @ 125mL/hr. Tolerates a regular diet. Gets OOB without assistance.
[2021-12-25] VITALS: BP 117/65; PULSE 63; RESP 16; TEMP 37.1; O2SAT 99
[2021-12-25 03:58] VITALS: BMI 34.3
[2021-12-25 04:00] VITALS: BP 138/59; PULSE 60; RESP 16; TEMP 37.1; O2SAT 96
--- NOTE | 2021-12-25 06:14 | PC.NURSE ---
shift summary: pt rested well throughout night, pt's vss, pt c/o slight headache/neck pain early in shift but none since then, pt ambulating to and from bathroom, MIVF going at 125mL/hr, call light within reach
[2021-12-25 08:00] VITALS: BP 134/79; PULSE 72; RESP 16; TEMP 36.7; O2SAT 99
--- NOTE | 2021-12-25 08:38 | EXP.PN ---
Subjective *Date: 01/10/22 *Time: 20:44 Interval history: Patient states she is feeling better today. She has minimal headache. Her neck continues to hurt with range of motion. Especially with flexing. She is eating and drinking okay. She is ambulated in the room without difficulty. White blood cell count remains normal. Spinal fluid culture is no growth after 24 hours. Exam Data for Last 24 hours Vital signs and Labs for Last 24 Hours: Temp Pulse Resp BP Pulse Ox 98.0 F 72 16 134/79 99 12/25/21 08:00 12/25/21 08:00 12/25/21 08:00 12/25/21 08:00 12/25/21 08:00 Laboratory Results - last 24 hr 12/23/21 20:08: Chlamy pneumoniae PCR Not detected, Adenovirus (PCR) Not detected, B. pertussis DNA (PCR) Not detected, Coronavirus OC43 (PCR) Not detected, Coronavirus HKU1 (PCR) Not detected, Coronavirus 229E (PCR) Not detected, Coronavirus NL63 (PCR) Not detected, Human Metapneumovir PCR Not detected, Influenza A (H1) PCR Not detected, Influ A (H1N1/09) PCR Not detected, Influenza A (H3) PCR Not detected, Influenza Type A (PCR) Not detected, Influenza Type B (PCR) Not detected, M. pneumoniae (PCR) Not detected, Parainfluenza 1 (PCR) Not detected, Parainfluenza 2 (PCR) Not detected, Parainfluenza 3 (PCR) Not detected, Parainfluenza 4 (PCR) Not detected, RSV (PCR) Not detected, Entero/Rhino (PCR) Not detected I & O for Last 24 hours: Intake & Output 12/22/21 12/23/21 12/24/21 12/25/21 11:59 11:59 11:59 11:59 Intake Total 2099 Output Total 0 / 0 0 / 0 Balance 2099 Weight 193 lb 194 lb 0.108 oz Microbiology Reports for the Last 24 Hours: Microbiology 12/23/21 21:49 Cerebral Spinal Fluid Gram Stain - Final 12/23/21 21:49 Cerebral Spinal Fluid CSF Culture - Preliminary NO GROWTH AFTER 24 HOURS Constitutional Constitutional: no acute distress *Routine Respiratory Exam Respiratory: Present CTA bilaterally (Anteriorly and posteriorly) *Routine Cardiovascular Exam Cardiovascular: Present RRR *Routine Abdominal Exam Abdominal: Present soft and normoactive bowel sounds; Absent tenderness *Routine Extremities Exam Extremities: Absent edema or calf tenderness Routine Back/Spine/Pelvis Exam Back/Spine: Present pain with flexion (Of the neck); Absent paraspinal tenderness, vertebral tenderness or muscle spasm *Routine Neurological Exam Neurological: Present alert, oriented X3 and moving all extremities; Absent sensory deficit, motor deficit or altered mental status Assessment and Plan *Assessment and plan (1) Viral meningitis: Status: Acute Category: Medical Code(s): A87.9 - Viral meningitis, unspecified (2) Graves disease: Status: Acute Category: Medical Code(s): E05.00 - Thyrotoxicosis with diffuse goiter without thyrotoxic crisis or storm (3) Cholelithiasis: Status: Acute Category: Medical Code(s): K80.20 - Calculus of gallbladder without cholecystitis without obstruction Plan Patient is discharged to home. She is to FU with her PCP Assessment and plan all Dx Assessment and Plan All Dx:: Patient seen and examined this AM. Concur with above. She feels better and is eager to go home. She is to f/u with her PCP in 7-10 days or sooner is she has worsening symptoms.
--- NOTE | 2021-12-25 08:43 | EXP.PN ---
Subjective *Date: 12/25/21 *Time: 08:43 Exam Data for Last 24 hours Vital signs and Labs for Last 24 Hours: Temp Pulse Resp BP Pulse Ox 98.0 F 72 16 134/79 99 12/25/21 08:00 12/25/21 08:00 12/25/21 08:00 12/25/21 08:00 12/25/21 08:00 Laboratory Results - last 24 hr 12/23/21 20:08: Chlamy pneumoniae PCR Not detected, Adenovirus (PCR) Not detected, B. pertussis DNA (PCR) Not detected, Coronavirus OC43 (PCR) Not detected, Coronavirus HKU1 (PCR) Not detected, Coronavirus 229E (PCR) Not detected, Coronavirus NL63 (PCR) Not detected, Human Metapneumovir PCR Not detected, Influenza A (H1) PCR Not detected, Influ A (H1N1/09) PCR Not detected, Influenza A (H3) PCR Not detected, Influenza Type A (PCR) Not detected, Influenza Type B (PCR) Not detected, M. pneumoniae (PCR) Not detected, Parainfluenza 1 (PCR) Not detected, Parainfluenza 2 (PCR) Not detected, Parainfluenza 3 (PCR) Not detected, Parainfluenza 4 (PCR) Not detected, RSV (PCR) Not detected, Entero/Rhino (PCR) Not detected I & O for Last 24 hours: Intake & Output 12/22/21 12/23/21 12/24/21 12/25/21 11:59 11:59 11:59 11:59 Intake Total 2099 2289 / 2289 Output Total 0 / 0 0 / 0 Balance 2099 / 228 Weight 193 lb 194 lb 0.108 oz Microbiology Reports for the Last 24 Hours: Microbiology 12/23/21 21:49 Cerebral Spinal Fluid Gram Stain - Final 12/23/21 21:49 Cerebral Spinal Fluid CSF Culture - Preliminary NO GROWTH AFTER 24 HOURS Assessment and Plan *Assessment and plan (1) Headache: Status: Acute Category: Medical Code(s): R51.9 - Headache, unspecified (2) Neck pain: Status: Acute Category: Medical Code(s): M54.2 - Cervicalgia (3) Graves disease: Status: Acute Category: Medical Code(s): E05.00 - Thyrotoxicosis with diffuse goiter without thyrotoxic crisis or storm (4) Cholelithiasis: Status: Acute Category: Medical Code(s): K80.20 - Calculus of gallbladder without cholecystitis without obstruction (5) Viral meningitis: Status: Acute Category: Medical Code(s): A87.9 - Viral meningitis, unspecified Plan Patient will be discharged today.
--- NOTE | 2021-12-25 09:18 | EXP.ANES.CKL ---
[facility] Medical History (Updated 12/25/21 @ 08:44 by Fiona Martinez APRN) Gallbladder calculus Graves disease Family History (Updated 12/24/21 @ 01:36 by Roro Brumfield RN) Other Breast CA Social History (Updated 12/24/21 @ 01:37 by Roro Brumfield RN) Smoking Status: Current every day smoker tobacco type: cigarettes packs per day: 1 alcohol intake: former substance use type: denies use current occupational status: employed Travel in the last 8 weeks: None [facility] Anesthesia Checklist Patient Identification Patient Identification: Arm Band Structural Data Admitted From: Inpatient Planned Operative Procedure/s: lumbar puncture Consent for Planned Operative Procedure(s) Verified: Yes Airway Assessment C-Spine Mobility Assessed: Yes TMJ Mobility Assessed: Yes Dentition: Good Dentition Neurological Assessment Level of Consciousness: Awake, Alert and Appropriate Anesthesia Plan Anesthesia Risk discussed: Yes Anesthesia Plan: Verified ASA Class: II Anesthesia Type: Spinal Preoperative Comments Pre-Operative Comments: lumbar puncture ro meningitis per Dr Babin
[2021-12-25 09:20] VITALS: PULSE 72; O2SAT 99
--- NOTE | 2021-12-26 11:56 | CARE MANAGER ---
Attempted to reach patient related to hospital discharge. No VM option. CARLOS Leong
--- NOTE | 2021-12-26 22:31 | EXP.DC.SUM ---
General Admission date:: 12/24/21 Discharge date: 12/25/21 HPI HPI HPI: Shanon is a 26-year-old white female with a history of Graves' disease who presented to the ER last evening with a 2-day history of malaise, fever, neck pain, and headache unrelieved with Tylenol and ibuprofen. Her son had experienced a brief febrile illness earlier in the week. He did not seek medical attention and seems to be fine now. Work-up in the emergency room including CT scan of the head and routine blood work was nonrevealing. Because of her presenting complaints, a lumbar puncture was performed which revealed 94 white blood cells with 100% mononuclear leukocytes. With these findings, she has been admitted with a diagnosis of viral meningitis pending final results of cultures. She has empirically been started on IV Rocephin. Incidentally, of note, she is scheduled to have her gallbladder removed on Saturday in [facility]. Hospital Course Hospital Course Hospital Course: The patient was admitted with a diagnosis of viral meningitis and was empirically started on IV Rocephin. She was neurologically stable. By 12/25/2021 she was feeling better and had a minimal headache. Her neck continued to hurt with range of motion. She was able to eat and ambulate. Her white blood cell count remained normal and her spinal fluid culture showed no growth after 24 hours. She was stable to be discharged home and will follow-up with her PCP. Exam Data for Last 24 hours Vital signs and Labs for Last 24 Hours: Temp Pulse Resp BP Pulse Ox 98.0 F 72 16 134/79 99 12/25/21 08:00 12/25/21 09:20 12/25/21 08:00 12/25/21 08:00 12/25/21 09:20 I & O for Last 24 hours: Intake & Output 12/24/21 12/25/21 12/26/21 12/27/21 11:59 11:59 11:59 11:59 Intake Total 2099 Output Total 0 / 0 0 / 0 Balance 2099 Weight 193 lb 194 lb 0.108 oz Microbiology Reports for the Last 24 Hours: Microbiology 12/23/21 21:49 Cerebral Spinal Fluid Gram Stain - Final 12/23/21 21:49 Cerebral Spinal Fluid CSF Culture - Preliminary NO GROWTH AFTER 72 HOURS 12/23/21 21:00 Blood Blood Culture - Preliminary NO GROWTH AFTER 48 HOURS 12/23/21 21:00 Blood Blood Culture - Preliminary NO GROWTH AFTER 48 HOURS Narrative: Constitutional Constitutional: no acute distress *Routine Respiratory Exam Respiratory: Present CTA bilaterally (Anteriorly and posteriorly) *Routine Cardiovascular Exam Cardiovascular: Present RRR *Routine Abdominal Exam Abdominal: Present soft and normoactive bowel sounds; Absent tenderness *Routine Extremities Exam Extremities: Absent edema or calf tenderness Routine Back/Spine/Pelvis Exam Back/Spine: Present pain with flexion (Of the neck); Absent paraspinal tenderness, vertebral tenderness or muscle spasm *Routine Neurological Exam Neurological: Present alert, oriented X3 and moving all extremities; Absent sensory deficit, motor deficit or altered mental status Results Data Completed and Pending Labs on day of discharge: Preliminary micro results at discharge 12/23/21 21:49 CSF Culture - Preliminary Cerebral Spinal Fluid NO GROWTH AFTER 72 HOURS 12/23/21 21:00 Blood Culture - Preliminary Blood NO GROWTH AFTER 48 HOURS 12/23/21 21:00 Blood Culture - Preliminary Blood NO GROWTH AFTER 48 HOURS DS: Diagnosis Discharge Diagnosis (1) Graves disease: Status: Acute (2) Cholelithiasis: Status: Acute (3) Viral meningitis: Status: Acute Meds Home Medications and Allergies Home Medications Medication Instructions Recorded Confirmed Type methimazole 10 mg tablet 20 mg PO BID GRAVES DISEASE 12/24/21 12/24/21 History New Prescriptions to Start Prescriptions: Allergies Allergy/AdvReac Type Severity Reaction Status Date / Time No Known Allergies A
== END 2021-12-25 09:30 | disposition home or self-care (01) ==
LOC: ER 20:05 → 2ND 12-24 00:24
PROVIDERS: Admitting Provider Family Medicine; Emergency Provider Emergency Medicine; PCP Family Medicine; Visit Provider Family Medicine
DX: A87.9 Viral meningitis, unspecified (principal); E05.00 Thyrotoxicosis with diffuse goiter without thyrotoxic crisis or storm; F17.210 Nicotine dependence, cigarettes, uncomplicated; K80.20 Calculus of gallbladder without cholecystitis without obstruction; Z20.822 Contact with and (suspected) exposure to COVID-19
CPT/HCPCS: 62270; 36415; 70450; 80048; 80053; 81001; 81025; 82945; 83605; 84145; 84155; 85025; 85651; 86140; 87040; 87070; 87205; 87486; 87581; 87632; 87798; 89051; 99285; C9803; G0378; J0696; U0003; U0005

== ENCOUNTER 2022-08-01 21:10 | Emergency (ER) | payer BC, SELFPAY ==
[2022-08-01 22:09] VITALS: BP 145/98; PULSE 75; RESP 17; TEMP 36.7; O2SAT 96; BMI 31.8
--- NOTE | 2022-08-01 22:14 | XR_ITS ---
PROCEDURE INFORMATION: Exam: XR Right Forearm Exam date and time: 08/01/2022 10:12 PM Age: 26 years old Clinical indication: Injury or trauma; Other: Bite; Puncture; Arm, lower; Right; Additional info: Dog bite TECHNIQUE: Imaging protocol: Radiologic exam of the right forearm. Views: 2 views. COMPARISON: No relevant prior studies available. FINDINGS: Bones/joints: Normal. Soft tissues: Normal. IMPRESSION: No acute findings.
--- NOTE | 2022-08-01 22:53 | PC.NURSE ---
Pt completed [employer] Animal bite form. This was faxed to the health department
--- NOTE | 2022-08-01 23:05 | HMH.EDANIB ---
Discharge Plan Disposition Patient Disposition: Home, Self-Care Prescriptions Prescriptions: New amoxicillin-pot clavulanate [Augmentin] 500-125 mg tablet 1 tab PO BID Qty: 20 0RF No Action methimazole 10 mg tablet 20 mg PO BID Label Comments: TAKE 2 TABLETS BY MOUTH 2 TIMES DAILY. Referrals Follow up/Referrals: Vito Brooks [Primary Care Provider] - See instructions Clinical Impressions Clinical Impression: Dog bite, Forearm laceration Instructions Patient Instructions: Animal Bites Discharge ED Provider: Olaf (ED)Uziel Animal Bite HPI General Chief Complaint: Animal Bite Stated Complaint: ao 08/01@1920 @home Dog Bite R Arm Time Seen by Provider: 08/01/22 23:05 Mode of Arrival: Family Vehicle Source of Information: Patient and Medical Record Limitations: No Limitations Description of Symptoms (Recalled from ER Triage Doc. by RN): rue with 2 puncture stroud as well as obvious swelling; pt reports her dog bit her accidentally while 'defending' against another dog. patient needs a tetanus immunization. History of Present Illness HPI narrative: dog bite rt forearm tonight known dogs complaint: animal bite Onset (ago): hour(s) Animal: dog Description of animal: household pet, immunizations unknown and appeared well Mechanism: bite Right: forearm Context: animals fighting Associated symptoms: none Related Data Patient tetanus UTD: No Home Medications Medication Instructions Recorded Confirmed methimazole 10 mg tablet 20 mg PO BID GRAVES DISEASE 12/24/21 12/24/21 Previous Rx's Medication Instructions Recorded amoxicillin 500 mg-potassium 1 tab PO BID #20 tabs 08/01/22 clavulanate 125 mg tablet (Augmentin) Allergies Allergy/AdvReac Type Severity Reaction Status Date / Time No Known Allergies Allergy Verified 09/05/17 17:19 [facility] Disclaimer: The information contained in this section may have been updated after the patient was seen, as this information can be updated by other users. Medical History (Updated 08/01/22 @ 23:27 by Uziel Babin (ED)MD) Gallbladder calculus Graves disease Family History (Updated 12/24/21 @ 01:36 by Roro Brumfield RN) Other Breast CA Social History (Updated 12/25/21 @ 09:20 by Lorenzo Soto CRNA) Smoking Status: Never smoker alcohol intake: former substance use type: denies use current occupational status: employed Travel in the last 8 weeks: None ROS Obtained: Yes All systems reviewed & no additional complaints except as documented Physical Exam General General appearance: alert Head Head exam: normocephalic Eye Eye exam: Present PERRL and EOMI ENT ENT exam: Present mucous membranes moist Neck Neck exam: Present trachea midline Respiratory Respiratory exam: Absent respiratory distress Cardiovascular Cardiovascular exam: Present regular rate Extremities Exam Extremities exam: Present full ROM Neurological Exam Neurological exam: Present alert, oriented X3 and CN II-XII intact; Absent motor sensory deficit Psychiatric Psychiatric exam: Present normal affect Skin Skin exam: Present other (dog bite rt forearm 1 cm - neurovascular ok ) Medical Decision Making Medical Records Medical records reviewed: Yes I reviewed the patient's medical records. [facility] Inquiry Pt receiving controlled substance: No Vital Signs: 08/01/22 22:09 Temperature 98.0 F Temperature Source Oral Pulse Rate [Left Brachial] 75 Respiratory Rate 17 Blood Pressure [Left Arm] 145/98 H Blood Pressure Mean [Left Arm] 113 Blood Pressure Source [Left Arm] Automatic Cuff Blood Pressure Position [Left Arm] Sitting 02 Sat by Pulse Oximetry 96 Oxygen Delivery Method Nasal Cannula Lab Data Lab results reviewed: Yes I reviewed the patient's lab results. Orders (Tests/Meds): ED MEDICATIONS Discontinued Medications Generic Name Dose Route Start Last Admin Trade Name Freq PRN Reason Stop D
[2022-08-01 23:29] VITALS: BP 125/75; PULSE 79; RESP 16; TEMP 36.7; O2SAT 98
== END 2022-08-01 23:39 | disposition home or self-care (01) ==
PROVIDERS: Emergency Provider Emergency Medicine; PCP Family Medicine
DX: S51.831A Puncture wound without foreign body of right forearm, initial encounter (principal); W54.0XXA Bitten by dog, initial encounter
CPT/HCPCS: 12041; 73090; 90714; 96372; 99283; 99284

== ENCOUNTER 2024-12-11 20:29 | Emergency (ER) | payer BC, SELFPAY ==
--- NOTE | 2024-12-11 20:27 | ECG_ITS ---
APPROVED REPORT Exam: Resting ECG HR:72 bpm ECG Measurements Heart Rate 72 AXES NM 195 P 54 QRSd 96 QRS 45 QT 382 T 37 QTc 406 Conclusion SINUS RHYTHM POSSIBLE RIGHT VENTRICULAR CONDUCTION DELAY [RSR (QR) IN V1/V2] BORDERLINE ECG Electronically signed by : RITA FLAHERTY, 12/12/2024 00:10:42
[2024-12-11 20:34] VITALS: BP 129/80; PULSE 78; RESP 16; TEMP 36.6; O2SAT 97; BMI 37.9
--- OUTSIDE RECORDS SUMMARY | 2024-12-11 20:46 | XMS_ITS | Clinical Summary ---
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 vit [id number] c 27 mg iron- 800 mcg Oral Tablet Take 1 Tablet by mouth daily. Active cyclobenzaprine (FLEXERIL) 5 mg Oral TabletIndication s: related hip pain, antepartum Take 1 Tablet by mouth 3 times daily as needed for Muscle spasms. 30 Tablet 1 02/25/2024 Active methIMAzole (TAPAZOLE) 5 mg Oral TabletIndication s:Goiter, toxic diffuse Take 1 Tablet by mouth daily. 30 Tablet 6 06/17/2024 Active Active Problems Problem Noted Date Diagnosed Date Disorder of thyroid, antepartum 10/08/2023 Overview (10/08/2023): PTU per Endo Growth at 28,32,36 weeks AT at 32 Noncompliance with medication regimen 10/10/2021 Assessment & Plan (08/20/2023 4:34 PM EDT): She is to program the reminders on the phone Assessment & Plan (01/28/2023 9:10 AM EDT): The importance of compliance with the medication regimen was emphasized to the patient. Different measures to improve the compliance were discussed with patient in detail. Assessment & Plan (11/22/2021 4:48 PM EDT): Improved overall Assessment & Plan (10/10/2021 12:36 PM EDT): The importance of compliance with the medication regimen was emphasized to the patient. Different measures to improve the compliance were discussed with patient in detail. Goiter, toxic diffuse 08/14/2021 Assessment & Plan (06/17/2024 11:16 AM EST): The patient is euthyroid clinically. She has been consistent with methimazole lately. The effects of state on thyroid status were reviewed with the patient in detail. She is to have thyroid function test done. The dose of methimazole will be adjusted if needed. Assessment & Plan (03/18/2024 9:25 AM EST): The patient is euthyroid clinically and biochemically. She is to continue present methimazole regimen . She is to have TSH done 4 weeks and 8 weeks Assessment & Plan (11/04/2023 3:35 PM EDT): Patient is euthyroid clinically Will obtain thyroid function test and adjust thyroid regimen if needed. Will change back to Methimazole TSH every 3-4 weeks Test results were reviewed in between the appointments. The medication regimen has been adjusted. There have been communications with the patient in between the appointments Assessment & Plan (08/20/2023 4:33 PM EDT): The patient is euthyroid clinically. Different aspects of Graves' disease management during the were discussed with the patient and her in detail. #1. She is to program to reminders on the phone to take the medication. The importance of maintaining euthyroid status during the was explained to the patient. #2. She is to change to PTU for the first trimester of followed by methimazole for the rest of the . She is to have thyroid hormone levels done in 3 weeks. Assessment & Plan (01/28/2023 9:10 AM EDT): The patient is euthyroid clinically. Continue to monitor on present dose of methimazole. She is to have thyroid function test repeated in 6 weeks. We will decide on the need for methimazole adjustment. The importance of compliance with treatment regimen to minimize the CVD and skeletal risks of untreated hyperthyroidism were reviewed with the patient in detail. She is to use a contraception to avoid Assessment & Plan (11/22/2021 4:50 PM EDT): Hyperthyroxinemia has improved but has not resolved yet. The patient has been consistent with methimazole. It would not be safe for her to proceed with elective surgery unless she is euthyroid. Will increase methimazole to 40 mg and recheck thyroid hormone level in 2 weeks. In the meantime I would recommend to postpone the surgery until the patient is euthyroid. We will proceed with radioactive iodine treatment when patient recovers from the surgery. Assessment & Plan (10/10/2021 12:36 PM EDT): The patient has persistent hyperthyroxinemia as a result of noncompliance with methimazole regimen. The nature of her condition as well as the results of work-up were discussed with the patient at length. Different treatment options including antithyroid medications, radioactive iodine and surgery were discussed with the patient at length. She is aware of high likelihood of developing of post ablative hypothyroidism as a result of treatment with radioactive iodine. She is aware of the need for contraception for 6 months after radioactive iodine and the need for contraception while she is on methimazole. She is going to consider different options. In the meantime she is to resume methimazole. We will monitor his response closely. I explained the potential health risk of untreated hyperthyroidism such as increased risk of cardiovascular disease. Obesity (BMI 30-39.9) 06/09/2021 Assessment & Plan (06/09/2021 11:57 AM EST): She is to maintain adequate food and caloric intake Migraine 01/28/2013 Idiopathic scoliosis 02/07/2010 Overview (02/07/2010): MILD GERD (gastroesophageal reflux disease) 0 Resolved Problems Problem Noted Date Diagnosed Date Resolved Date (spontaneous vaginal delivery) 04/04/2024 05/21/2024 Normal labor and delivery 04/04/2024 Influenza A 04/03/2024 05/21/2024 Supervision of other normal , antepartum 10/08/2023 05/21/2024 Overview (01/28/2024): EDC by L=8 week US PNL wnl Genetics declined Anatomy wnl GTT ok Tdap complete GBS History of gestational diabe guy in prior , currently 10/08/2023 05/21/2024 Overview (10/08/2023): Early GCT ordered 08/20/2023 05/21/2024 Assessment & Plan (03/18/2024 9:25 AM EST): The patient is due in 4 weeks Assessment & Plan (11/04/2023 3:35 PM EDT): The patient is under care of MANAGER UTILIZATION MANAGEMENT Assessment & Plan (08/20/2023 4:33 PM EDT): The patient is scheduled to see an MANAGER UTILIZATION MANAGEMENT 3 weeks Symptomatic cholelithiasis 11/23/2021 0 10/08/2023 Cholecystitis 11/21/2021 10/08/2023 Overview (11/21/2021): Added automatically from request for surgery [id number] Hyperthyroidism 06/09/2021 10/10/2021 Assessment & Plan (06/09/2021 11:57 AM EST): The patient developed symptomatic hyperthyroxinemia 4 to 5 weeks ago. Physical exam reveals small diffuse goiter. The nature of her condition as well as the results of work-up were discussed with the patient in detail. We will proceed with thyroid scan and uptake to rule out painless subacute thyroiditis. In the meantime the patient is to start the beta-elissa regimen. She is to use a contraception to avoid . She is to maintain adequate fluid and caloric intake. She is to avoid excessive physical activity (spontaneous vaginal delivery) 06/18/2019 07/30/2019 Encounter for supervision of other normal , third trimester 05/11/2019 07/30/2019 Encounter for supervision of other normal , second trimester 02/12/2019 06/18/2019 Immunizations Immunization Administration Dates Next Due DTaP 10/08/2006, 7,04/29/1996,01/29,1995 HPV Quadrivalent 05/31/2011,02/26/2011, 1 Hepatitis B, Unspecified Formulation 05/02/2001, 09/02/1996,1995 HiB, Unspecified Formulation 02/02/1997, 04/29/1996,01/30/1996,10/30 IPV 03/22/2000, 7,01/30/1996,10/30 Influenza Seasonal Injectable PF 12/31/2023(Defe rred: Patient Refused) Influenza Vaccine, Unspecifi ed Formulation 02/27/2010 MMR 03/22/2000,02/02/1997 Meningococcal Conjugate 10/08/2006 PPD Test 04/13/2022 Td, adult 08/01/2022 Tdap 01/28/2024,05/12/2019 Varicella 05/02/2001,09/02/1996 Surgical History Surgery Date Site/Laterality Comments CHOLECYSTECTOMY, LAPAROSCOPIC 01/23/2022 Abdomen/N/A LAPAROSCOPIC CHOLECYSTECTOMY ; Surgeon: Belem Stone MD; Location: [facility] MAIN OR; Service: General Medical History Medical History Date Comments Idiopathic scoliosis 02/07/2010 GERD (gastroesophageal reflux disease) 0 Vesicoureteral reflux childhood pneumothorax Pyelonephritis hx vesicouretera l reflux Thyroid disease Hyperthyroidism Diabetes mellitus (HCC) Family History Medical History Relation Name Comments Diabetes Father Nick Tubbs High Blood Pressure Father Nick Tubbs Substance Abuse Father Nick Tubbs Diabetes Maternal Grandfather Damion Eloy Kidney Disease Maternal Grandfather Damion Lyons Stroke Maternal Grandfather Damion Lyons Breast Cancer Maternal Grandmother Ting Lyons Cancer Maternal Grandmother Ting Lyons Breas t cancer. Asthma Mother Fiona Tubbs Diabetes Mother Fiona Tubbs Other Mother Fiona Tubbs GERD Vision Loss Other Cousin Early Paternal Aunt Belkys Tubbs in her 3 0's from an asthma attack. Diabetes Paternal Grandfather Damion Lyons Diabetes Paternal Grandmother Katherine Tubbs Asthma Sister 1 Kelly Seizures Sister 1 Kelly Substance Abuse Sister 2 Kathrien Drug and alc ohol abuse. Early Sister 3 Estrella Tubbs S.I.D.S Anesth Problems Neg Hx Relation Name Status Comments Father Nick Tubbs Alive Maternal Grandfather Damion Lyons Alive Maternal Grandmother Ting Lyons Alive Mother Fiona Tubbs Alive Other Cousin Alive Paternal Aunt Belkys Tubbs Paternal Grandfather Damion Lyons Paternal Grandmother Katherine Tubbs Alive Sister 1 Kelly Alive Sister 2 Kathrien Alive Sister 3 Estrella Tubbs Social History Tobacco Use Types Packs/Day Years Used Date Smoking Tobacco: Former Cigarettes 0.5 6.4 S tarted: 03/03/2021 Smokeless Tobacco: Never Tobacco Cessation:Counseling Given: Not Answered Comments:Smoked from [age] years old quit in 2016 and started smoking in February of 2021 Alcohol Use Standard Drinks/Week Comments Not Currently 0 (1 standard drink = 0.6 oz pur e alcohol) occ PHQ-2 Answer Date Recorded PHQ-2 Total Score 0 04/04/2024 Sexually Active Control Partners Comments Yes Male Comments No Sex and Gender Information Value Date Recorded Sex Assigned at Not on file Legal Sex Female 3:59 PM EDT Gender Identity Not on file Sexual Orientation Not on file Obstetrics History Para Term AB IAB SAB Ectopic Multiple Livin g Live Births 3 3 3 0 3 3 Date Outcome GA Total Labor Labor/2nd/3rd Weight Sex Type Anes PTL Lauren A1 A5 Name Clin 2016 Term 7 lb 3 oz (3.26 kg) F Vag-F orcep s N Livin g Delivery Location:[facility] 2019 Term 39w 0d 7 lb 13 oz (3.544 kg) M Vag-S pont Epidur al N Livin g 8 9 ATKINSON ,TIFEDDIE [place] Shalini Pham Elsai di, MD Complications:Gestational di abetes Delivery Location:[facility] 2023 Term 38w 1d 0h 06m 0h 06m 7 lb 6.5 oz (3.36 kg) F Vag-S pont Local N Livin g 8 9 Paisle y Atkinson Carson carl, Braulio Alvarez , Delivery Location:[facility] ([facility]) Last Filed Vital Signs Vital Sign Reading Time Taken Comments Blood Pressure 124/78 07/10/2024 9:53 AM EDT Pulse 73 04/05/2024 9:44 AM EST Temperature 36.4 C (97.6 F) 04/05/2024 9:44 AM EST Respiratory Rate 18 04/05/2024 9:44 AM EST Oxygen Saturation 100% 04/05/2024 9:44 AM EST Inhaled Oxygen Concentration - - Weight 102.5 kg (226 lb) 07/10/2024 9:53 AM EDT Height 160 cm (5' 3 ) 04/13/2024 8:42 AM EST Body Mass Index 40.03 04/13/2024 8:42 AM EST Plan of Treatment Health Maintenance Due Date Last Done Comments COVID-19 Vaccine ( season) 2023 Annual Wellness Exam 11/11/2024 11/12/2023 Influenza Vaccine (#1) 2024 7 (Declined), 02/23/2016 (Declined), 03/05/2015, Additional history exists Cervical Cancer Screening 10/07/2026 Pap Smear 10/07/2026 10/08/2023, 02/13, 12/11/2018 DTaP/TDaP/Td (9 - Td or Tdap) 01/27/2034 01/28/2024, 08/01/2022, 05/12/2019, Additional history exists Hepatitis B Vaccine Completed 05/02/2001, 09/02/1996, 1995 Chlamydia Screening Discontinued 10/08/2023, 03/25/2022, 02/27/2022, Additional history exists Meningococcal B Vaccine Aged Out No l onger eligible based on patient's age to complete this topic Pneumococcal Vaccine 0-49 Aged Out No longer eligible based on patient's age to complete this topic Goals Goal Patient Goal Type Associated Problems Recent Progress Patient-Stated? 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 REQUEST (PAP ONLY) Routine 10/08/2023 11:22 AM EDT Supervision of other normal , antepartum from Last 3 Months or Most Recently Relevant to Health Maintenance Results * 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 MACHINE OPERATOR CYTOLOGY REQUEST (PAP ONLY) (10/08/2023 11:22 AM EDT) CASE REPORT Gynecologic Cytology Report Case: [id number] Authorizing Provider: Yesi Wong Collected: 10/08/2023 Michel2 DO Kim [facility]: 10/08/2023 1122 First Screen: Karina Ervin CT Specimen: LIQUID-BASED PAP - CERVICAL/ENDOCERV ICAL, Cervix, Endocervical 10/10/2023 3:33 PM EDT [facility] PAP FINAL DIAGNOSIS Negative for intraepithelial lesion or malignancy 10/10/2023 3:33 PM EDT [facility] at 1533 EDT MICROSCOPIC DESCRIPTION Microscopic examination is performed and the findings corroborate the diagnosis. 10/10/2023 3:33 PM EDT [facility] PAP SMEAR ADEQUACY Satisfactory for evaluation 10/10/2023 3:33 PM EDT [facility] ENDOCERVICAL T-ZONE Transformation zone absent. 10/10/2023 3:33 PM EDT [facility] EMBEDDED IMAGES 3:33 PM EDT [facility] PAP DISCLAIMER The Pap Smear is a screening test that aids in the detection of cervical cancer and cancer precursors. Both false positive and false negative results can occur. The test should be used at regular intervals, and positive results should be confirmed before definitive therapy. Processed using the ThinPrep Booking Manager Automated cytology screening device ([employer]). 10/10/2023 3:33 PM EDT [facility] Thin Prep ENDOCERVICAL STRUCTURE / Unknown 10/08/2023 11:22 AM EDT 10/08/2023 11:22 AM EDT Yesi Wong DO CYTOLOGY [place] [address] * GC CHLAMYDIA THIN PREP (10/08/2023 11:22 AM EDT) Chlamydia trachomatis Not Detected Not Detected 10/09/2023 3:15 PM EDT PREFERRED LAB [facility], [facility] Neisseria gonorrhoeae Not Detected Not Detected 10/09/2023 3:15 PM EDT [facility], [facility] Thin Prep SPECIMEN FROM UTERINE CERVIX / Unknown 10/08/2023 11:22 AM EDT 10/08/2023 11:22 AM EDT Narrative PREFERRED [facility], [facility] - 10/09/2023 3:15 PM EDT Testing methodology is head charrer mediated amplification (TMA) using the Aptima Combo 2 assay from [employer]. A negative result does not completely rule out a Chlamydia trachomatis or Neisseria gonorrhoeae infection due to potential inhibitors or levels present below the limit of detection by this assay. Results are dependent on proper collection and transport of specimen. This test is indicated for medical purposes only and should not be used for legal or forensic purposes. The performance characteristics of this assay were validated by the testing laboratory. This assay is FDA cleared to test the following specimens: clinician-collected endocervical, vaginal, male urethral swab specimens, rectal swabs, and throat/pharyngeal swabs; patient collected vaginal specimens within a clinic setting; Thin Prep Specimens in PreservCyt Solution; and first-stream, unpreserved male and female urine specimens. Detailed methodology is available upon request. Yesi Wong DO MICROBIOLOGY - GEN ERAL ORDERABLES Final Result [facility] [address] [place] [address] from Last 3 Months or Most Recently Relevant to Health Maintenance Insurance [employer] PPO Member Subscriber Plan / Payer (Ef fective 2019-Present) Name:Shanon Atkinson Relation to Subscriber:Spouse Name:MATT ATKINSON Date of :1990 (Home) Address: [address] [place] [address] Payer ID:[id number] (NAIC) Type:Not on file Address: [address] [place] [id number] [employer] PPO Advance Directives For more information, please contact: [phone] * Full Code (Latest Code Status on File) Date Activated Date Inactivated Comments 04/04/2024 11:10 AM 04/05/2024 3:41 PM * Full Code Date Activated Date Inactivated Comments 04/04/2024 9:56 AM 04/04/2024 11:10 AM * Full Code Date Activated Date Inactivated Comments 06/18/2019 6:29 AM 06/18/2019 4:31 PM * Full Code Date Activated Date Inactivated Comments 04/12/2015 12:58 PM 04/17/2015 7:40 PM * Full Code Date Activated Date Inactivated Comments 04/11/2015 11:25 PM 04/12/2015 12:58 PM 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
--- NOTE | 2024-12-11 20:47 | XR_ITS ---
PROCEDURE INFORMATION: Exam: XR Chest Exam date and time: 12/11/2024 9:46 PM Age: 29 years old Clinical indication: Shortness of breath; Additional info: Short of breath TECHNIQUE: Imaging protocol: Radiologic exam of the chest. Views: 1 view. COMPARISON: CT ABDOMEN PELVIS W CON 08/25/2021 7:09 PM FINDINGS: Lungs: Unremarkable. No consolidation. Pleural spaces: Unremarkable. No pleural effusion. No pneumothorax. Heart/Mediastinum: Unremarkable. No cardiomegaly. Bones/joints: Unremarkable. IMPRESSION: No acute findings.
[2024-12-11] MEDS: ASPIRIN 325MG TABLET 325 MG PO (20:56)
[2024-12-11 21:00] VITALS: BP 134/86; PULSE 69; RESP 21; O2SAT 97
[2024-12-11 21:03] LABS: Hematocrit 38.7 % (37.0-47.0); Hemoglobin 12.7 g/dL (12.2-16.2); Immature Granulocytes % 0.2 %; Mean Corpuscular HGB Conc 32.8 g/dL (31.8-35.4); Mean Corpuscular Hemoglobin 28.2 pg (27.0-31.2); Mean Corpuscular Volume 85.8 fl (81-99); Nucleated Red Blood Cells % 0 %; Platelet Count 345 K/mm3 (142-424); Red Blood Count 4.51 M/mm3 (4.20-5.40); Red Cell Distribution Width-SD 44.0 fL; White Blood Count 10.6 K/mm3 (4.8-10.8)
--- NOTE | 2024-12-11 21:04 | ED_ITS ---
Discharge Plan Disposition Patient Disposition: Home, Self-Care Prescriptions Prescriptions: No Action methimazole 10 mg tablet 20 mg PO BID Patient Comments: TAKE 2 TABLETS BY MOUTH 2 TIMES DAILY. amoxicillin-pot clavulanate [Augmentin] 500-125 mg tablet 1 tab PO BID Qty: 20 0RF Referrals Follow up/Referrals: Caio Edwards MD [Staff Physician, Cardiology] - See instructions Vito Brooks [Primary Care Provider, Medical] - See instructions Activity Restrictions/Add. Instructions Additional Instructions/Restrictions: Please follow-up with your PCP on Saturday. If you have worsening pain or pain that is different please return to the ER for evaluation. Please also call Dr. Edwards's office on Saturday for follow-up for echo and stress test. Clinical Impressions Clinical Impression: Atypical chest pain Instructions Patient Instructions: DI for Atypical Chest Pain Print Language Print Language: Greenlandic Discharge ED Provider: Roderick Ybarra HPI <Rosalba Fabian (ED), AOC OPERATIONS INTELLIGENCE OFFICER - Last Filed: 12/11/24 23:20> General Chief Complaint: Chest Pain Stated Complaint: chest pain Time Seen by Provider: 12/11/24 21:04 Mode of Arrival: Ambulatory Source of Information: Patient Description of Symptoms (Recalled from ER Triage Doc. by RN): Pt presents to ED for midsternal/R sided CP that radiates to her right thoracic cage. Pt states this has happened before and just went away however it felt worse tonight. Pt rates pain 4/10 at this time. Pt is A&O*4 and family is bedside. History of Present Illness HPI narrative: 29-year-old female presents to the ED today for midsternal and right-sided thoracic cage down her side. She states that this has happened many times before but did not radiate to her right thoracic cage. This concerned her. She says this time it lasted for an hour. It created a small amount of shortness of air. She said it eased up about an hour later. No nausea or vomiting. No diarrhea. No chest or lung history Related Data Home Medications ?Medication ?Instructions ?Recorded ?Confirmed methimazole 10 mg tablet 20 mg PO BID GRAVES DISEASE 12/24/21 12/24/21 Previous Rx's ?Medication ?Instructions ?Recorded amoxicillin 500 mg-potassium 1 tab PO BID #20 tabs clavulanate 125 mg tablet (Augmentin) Allergies Allergy/AdvReac Type Severity Reaction Status Date / Time No Known Allergies Allergy Verified 09/05/17 17:19 PFSH <Rosalba Fabian (ED), AOC OPERATIONS INTELLIGENCE OFFICER - Last Filed: 12/11/24 23:20> PFS Disclaimer: The information contained in this section may have been updated after the patient was seen, as this information can be updated by other users. Medical History (Updated 12/11/24 @ 23:11 by Rosalba Fabian (ED), AOC OPERATIONS INTELLIGENCE OFFICER) Gallbladder calculus Graves disease Family History (Updated 12/24/21 @ 01:36 by Roro Brumfield RN) Other Breast CA Social History (Updated 12/25/21 @ 09:20 by Lorenzo Soto CRNA) Smoking Status: Unknown if ever smoked alcohol intake: former substance use type: denies use current occupational status: employed Travel in the last 8 weeks?: None Have you lived/traveled outside US in past 30 days?: No Contact w/someone who lives/traveled outside US past 30 days?: No Exposure to someone with infectious disease in past 14 days?: No Do you have a fever (greater than 100.4 F or 38 C)?: No Have you tested positive for COVID-19?: No Exposed to someone with COVID-19 in past 14 days?: No Do you have a sore throat?: No Do you have a cough?: No Do you have any weakness?: No Do you have any diarrhea?: No Are you experiencing any unusual bleeding?: No Do you have any muscle aches/pain?: No Do you have any abdominal pain?: No Are you experiencing loss of taste or smell?: No Other Medical History Have you received the Flu Vaccine for this season: No Have you received the Pneumonia Vaccine: No <Rosalba Fabian (ED), AOC OPERATIONS INTELLIGENCE OFFICER - Last Filed: 12/11/24 23:20> ROS Obtained: Yes Systems reviewed as appropriate & no additional complaints except as documented Constitutional Constitutional: Reports as per HPI Physical Exam <Rosalba Fabian (ED), AOC OPERATIONS INTELLIGENCE OFFICER - Last Filed: 12/11/24 23:20> General General appearance: alert and in no apparent distress Head Head exam: normocephalic Eye Eye exam: Present PERRL ENT ENT exam: Present mucous membranes moist Neck Neck exam: Present trachea midline Chest Chest inspection: Present symmetric chest wall rise Respiratory Respiratory exam: Present normal lung sounds bilaterally Cardiovascular Cardiovascular exam: Present regular rate, normal rhythm, normal heart sounds, +S1 and +S2 Abdominal Exam Abdominal exam: Present soft and normal bowel sounds Extremities Exam Extremities exam: Present full ROM and normal capillary refill Back Exam Back exam: Present normal inspection and full ROM Neurological Exam Neurological exam: Present alert, oriented X3 and normal gait Psychiatric Psychiatric exam: Present normal affect and normal mood Skin Skin exam: Present warm and dry HEART Score <Rosalba Fabian (ED), AOC OPERATIONS INTELLIGENCE OFFICER - Last Filed: 12/11/24 23:20> HEART Score HEART Score assessment performed?: Yes History (anamnesis): Slightly suspicious ECG: Normal Age: <45 years Risk factors: No known risk factors Troponin: </= normal limit HEART Score: 0 <Roderick Ybarra MD - Last Filed: 12/11/24 23:27> HEART Score HEART Score: 0 Critical Care <Rosalba Fabian (ED), AOC OPERATIONS INTELLIGENCE OFFICER - Last Filed: 12/11/24 23:20> Critical Care Time Critical Care Time: No Medical Decision Making <Rosalbagigi Fabian (ED), AOC OPERATIONS INTELLIGENCE OFFICER - Last Filed: 12/11/24 23:20> Beltran Inquiry Pt receiving controlled substance: No Beltran was queried for this patient: No Vital Signs Vital Signs: 12/11/24 20:34 12/11/24 21:00 12/11/24 21:30 Temperature 97.9 F Temperature Source Oral Pulse Rate 69 75 Pulse Rate [Left] 78 Respiratory Rate 16 21 17 Blood Pressure 134/86 137/84 Blood Pressure [Right Arm] 129/80 Blood Pressure Mean [Right Arm] 96 02 Sat by Pulse Oximetry 97 97 97 Oxygen Delivery Method Room Air 12/11/24 22:00 Temperature Temperature Source Pulse Rate 60 Pulse Rate [Left] Respiratory Rate 15 Blood Pressure 108/71 L Blood Pressure [Right Arm] Blood Pressure Mean [Right Arm] 02 Sat by Pulse Oximetry 97 Oxygen Delivery Method Lab Data Labs: Lab Results 12/11/24 20:35: WBC 10.6, RBC 4.51, Hgb 12.7, Hct 38.7, MCV 85.8, MCH 28.2, MCHC 32.8, RDW 14.2, Plt Count 345, MPV 11.1 H, Neut % (Auto) 62.9, Lymph % (Auto) 29.9, Surry % (Auto) 6.1, Eos % (Auto) 0.3, Baso % (Auto) 0.6, Neut # (Auto) 6.7, Lymph # (Auto) 3.2, Surry # (Auto) 0.7, Eos # (Auto) 0.0, Baso # (Auto) 0.1, D- Dimer 0.64 H, Sodium 137, Potassium 4.0, Chloride 106, Carbon Dioxide 24, Anion Gap 11.0, BUN 15, Creatinine 0.80, Estimated Creat Clear 169, Estimated GFR 85, Est GFR ( Amer) 103, Glucose 117 H, Calcium 8.8, Magnesium 1.8, Total Bilirubin 0.8, AST 49 H, ALT 17, Alkaline Phosphatase 54, Troponin I < 0.01, Total Protein 8.1, Albumin 4.6, Globulin 3.5 H, Albumin/Globulin Ratio 1.3, Lipase 111, HCV Ab NATHANIEL w/Rflx PCR Qn Negative, HIV Ag/Ab Combo Qual Negative 12/11/24 20:59: SARS-CoV-2 (PCR) Not detected, Influenza A Untype (PCR) Not detected, Influenza Type B (PCR) Not detected 12/11/24 20:35 12/11/24 20:35 Response Orders (Tests/Meds): ED MEDICATIONS Discontinued Medications Generic Name Dose Route Start Last Admin Trade Name Freq PRN Reason Stop Dose Admin Aspirin 325 mg 12/11/24 20:47 12/11/24 20:56 Aspirin 325mg Tablet PO 12/11/24 20:48 325 mg ONCE ONE Administration Morphine Sulfate 2 mg 12/11/24 20:49 12/11/24 21:00 Morphine 2mg/Ml Syringe IV 12/11/24 20:50 Not Given ONCE ONE Ondansetron HCl 4 mg 12/11/24 20:47 12/11/24 21:00 Ondansetron 4mg/2ml Vial IV 12/11/24 20:48 Not Given ONCE ONE ORDERS Category Date Time Status Chest XR -- portable [XR chest portable] Stat Exams 12/11/24 20:47 Completed CBC [Complete Blood Count Auto Diff] Stat Lab 12/11/24 20:35 Completed Comprehensive Metabolic Panel Stat Lab 12/11/24 20:35 Completed D-Dimer Stat Lab 12/11/24 20:35 Completed HIV Combo Stat Lab 12/11/24 20:35 Completed Hepatitis C Ab Qual. W/ RFX Stat Lab 12/11/24 20:35 Completed Lipase Stat Lab 12/11/24 20:35 Completed Magnesium Stat Lab 12/11/24 20:35 Completed Rapid PCR Covid and Flu A/B Stat Lab 12/11/24 20:59 Completed Trop I [Troponin I] Stat Lab 12/11/24 20:35 Completed Troponin I Q3H Lab 12/11/24 23:48 Ordered Troponin I Q3H Lab 12/12/24 02:48 Ordered MDM Narrative Medical Decision Narrative: patient is a 29-year-old female presenting to the emergency department for evaluation of chest pain on the right side. Patient is hemodynamically stable and nontoxic-appearing upon arrival, afebrile. Differential diagnosis includes ACS, GERD, among others. Workup will be conducted with hematologic labs, specific imaging. Initial inventions include crystalloid bolus, analgesics. Initial workup reviewed by nh hematologic labs are actionable. Troponin is negative, dimer was 0.64 but per years criteria no signs and symptoms of DVT, most likely diagnosis is not PE dimer is less than 1. Patient chest pain has been going on off and on for a while. She started having the right thoracic rib cage pain that was additional. This however does not explain or remain dissection. She does not warrant further workup as this rules her out for ACS and PE. She does need to follow-up with her PCP and cardiology for complete workup. <Roderick Ybarra MD - Last Filed: 12/11/24 23:27> Vital Signs Vital Signs: 12/11/24 20:34 12/11/24 21:00 12/11/24 21:30 Temperature 97.9 F Temperature Source Oral Pulse Rate 69 75 Pulse Rate [Left] 78 Respiratory Rate 16 21 17 Blood Pressure 134/86 137/84 Blood Pressure [Right Arm] 129/80 Blood Pressure Mean [Right Arm] 96 02 Sat by Pulse Oximetry 97 97 97 Oxygen Delivery Method Room Air 12/11/24 22:00 Temperature Temperature Source Pulse Rate 60 Pulse Rate [Left] Respiratory Rate 15 Blood Pressure 108/71 L Blood Pressure [Right Arm] Blood Pressure Mean [Right Arm] 02 Sat by Pulse Oximetry 97 Oxygen Delivery Method Lab Data Labs: Lab Results 12/11/24 20:35: WBC 10.6, RBC 4.51, Hgb 12.7, Hct 38.7, MCV 85.8, MCH 28.2, MCHC 32.8, RDW 14.2, Plt Count 345, MPV 11.1 H, Neut % (Auto) 62.9, Lymph % (Auto) 29.9, Surry % (Auto) 6.1, Eos % (Auto) 0.3, Baso % (Auto) 0.6, Neut # (Auto) 6.7, Lymph # (Auto) 3.2, Surry # (Auto) 0.7, Eos # (Auto) 0.0, Baso # (Auto) 0.1, D- Dimer 0.64 H, Sodium 137, Potassium 4.0, Chloride 106, Carbon Dioxide 24, Anion Gap 11.0, BUN 15, Creatinine 0.80, Estimated Creat Clear 169, Estimated GFR 85, Est GFR ( Amer) 103, Glucose 117 H, Calcium 8.8, Magnesium 1.8, Total Bilirubin 0.8, AST 49 H, ALT 17, Alkaline Phosphatase 54, Troponin I < 0.01, Total Protein 8.1, Albumin 4.6, Globulin 3.5 H, Albumin/Globulin Ratio 1.3, Lipase 111, HCV Ab NATHANIEL w/Rflx PCR Qn Negative, HIV Ag/Ab Combo Qual Negative 12/11/24 20:59: SARS-CoV-2 (PCR) Not detected, Influenza A Untype (PCR) Not detected, Influenza Type B (PCR) Not detected Response Orders (Tests/Meds): ED MEDICATIONS Discontinued Medications Generic Name Dose Route Start Last Admin Trade Name Freq PRN Reason Stop Dose Admin Aspirin 325 mg 12/11/24 20:47 12/11/24 20:56 Aspirin 325mg Tablet PO 12/11/24 20:48 325 mg ONCE ONE Administration Morphine Sulfate 2 mg 12/11/24 20:49 12/11/24 21:00 Morphine 2mg/Ml Syringe IV 12/11/24 20:50 Not Given ONCE ONE Ondansetron HCl 4 mg 12/11/24 20:47 12/11/24 21:00 Ondansetron 4mg/2ml Vial IV 12/11/24 20:48 Not Given ONCE ONE ORDERS Category Date Time Status Chest XR -- portable [XR chest portable] Stat Exams 12/11/24 20:47 Completed CBC [Complete Blood Count Auto Diff] Stat Lab 12/11/24 20:35 Completed Comprehensive Metabolic Panel Stat Lab 12/11/24 20:35 Completed D-Dimer Stat Lab 12/11/24 20:35 Completed HIV Combo Stat Lab 12/11/24 20:35 Completed Hepatitis C Ab Qual. W/ RFX Stat Lab 12/11/24 20:35 Completed Lipase Stat Lab 12/11/24 20:35 Completed Magnesium Stat Lab 12/11/24 20:35 Completed Rapid PCR Covid and Flu A/B Stat Lab 12/11/24 20:59 Completed Trop I [Troponin I] Stat Lab 12/11/24 20:35 Completed Troponin I Q3H Lab 12/11/24 23:48 Ordered Troponin I Q3H Lab 12/12/24 02:48 Ordered ECG Data Tracing #1: ECG Narrative: Independently interpreted by me rate is 72, rhythm is regular, axis is normal, no ST elevation in anatomical contiguous leads, QTc 406. [facility] Narrative Medical Decision Narrative: patient is a 29-year-old female presenting to the emergency department for evaluation of chest pain on the right side. Patient is hemodynamically stable and nontoxic-appearing upon arrival, afebrile. Differential diagnosis includes ACS, GERD, among others. Workup will be conducted with hematologic labs, specific imaging. Initial inventions include crystalloid bolus, analgesics. Initial workup reviewed by me hematologic labs are actionable. Troponin is negative, dimer was 0.64 but per years criteria no signs and symptoms of DVT, most likely diagnosis is not PE dimer is less than 1. Patient chest pain has been going on off and on for a while. She started having the right thoracic rib cage pain that was additional. This however does not explain or remain dissection. She does not warrant further workup as this rules her out for ACS and PE. She does need to follow-up with her PCP and cardiology for complete workup. I was consulted by the AIDA, and we discussed the complexity of the problems being addressed. I approved the treatment and management plan for this patient's care in the emergency department, thus performing a substantive portion of the medical decision making. Given duration of chest pain single troponin is appropriate. Roderick Ybarra MD Jumbo Operator disclaimer Much of this encounter note is an electronic channel development director spoken language to printed text. Electronic channel development director of the spoken language may permit errors. Although I have reviewed the note, some errors may still exist.
[2024-12-11 21:05] LABS: Coronavirus 19, PCR Not Detected (NotDetected); Influenza A, PCR Not Detected (NotDetected); Influenza B, PCR Not Detected (NotDetected)
[2024-12-11 21:10] LABS: Chloride 106 mmol/L (98-107); Potassium 4.0 mmoL/L (3.5-5.1); Sodium 137 mmol/L (136-145)
[2024-12-11 21:12] LABS: Alanine Aminotransferase 17 U/L (12-78); Anion Gap 11.0 mEq/L (5-15); Aspartate Amino Transferase 49 U/L (14-36); Blood Urea Nitrogen 15 mg/dl (7-17); Carbon Dioxide 24 mmol/L (22.0-30.0); Creatinine Clearance Estimated 169 mL/min (50-200); Creatinine,Serum 0.80 mg/dl (0.52-1.04); Estimated Glomerular Filt Rate 85 ml/min (>60); GFR (African American) 103 ML/MIN (>60)
[2024-12-11 21:13] LABS: Alkaline Phosphatase 54 U/L (38-126); Bilirubin,Total 0.8 mg/dl (0.2-1.3); Calcium 8.8 mg/dl (8.4-10.2); Glucose 117 mg/dl (74-100); Lipase 111 U/L (23-300); Magnesium 1.8 mg/dl (1.6-2.3); Total Protein,Serum 8.1 g/dl (6.3-8.2)
[2024-12-11 21:25] LABS: Troponin I < 0.01 ng/ml (0.00-0.034)
[2024-12-11 21:30] VITALS: BP 137/84; PULSE 75; RESP 17; O2SAT 97
[2024-12-11 21:31] LABS: D-Dimer 0.64 ug/mL (0.0-0.5)
[2024-12-11 22:00] VITALS: BP 108/71; PULSE 60; RESP 15; O2SAT 97
[2024-12-11 22:04] LABS: Hepatitis C Ab Qual. W/ RFX NEGATIVE (Negative)
[2024-12-11 22:32] LABS: Albumin Level 4.6 g/dl (3.5-5.0); Albumin/Globulin Ratio 1.3 (1.1-1.8); Globulin 3.5 g/dL (1.3-3.2)
[2024-12-11 23:44] VITALS: BP 111/67; PULSE 74; RESP 19; TEMP 36.7; O2SAT 97
== END 2024-12-11 23:46 | disposition home or self-care (01) ==
PROVIDERS: Nurse Practitioner; Emergency Provider Emergency Medicine; PCP Family Medicine
DX: R07.89 Other chest pain (principal)
CPT/HCPCS: 71045; 80053; 83690; 83735; 84484; 85025; 85378; 86803; 87389; 87636; 93005; 99285

== ENCOUNTER 2024-12-25 10:41 | Outpatient (CLI) | payer BC, SELFPAY ==
--- OUTSIDE RECORDS SUMMARY | 2024-12-15 13:30 | XMS_ITS | Encounter Summary ---
Author Organization [place] [address] Care Team Providers Care Captain Assistant Name Role Phone Vito Brooks DO Primary Care Provider [phone] Julia Sullivan MD Unavailable [phone] Belem Stone MD Unavailable [phone] Reason for Visit * Reason Comments ED Follow-up Encounter Details Date Type Department Care Team (Late st Contact Info) Description 12/15/2024 1:30 PM EDT Office Visit [facility] [address] [place] [phone] Vito Brooks DO [address] [place] [address] Acute pain of right shoulder (Primary Dx) Social History Tobacco Use Types Packs/Day Years Used Date Smoking Tobacco: Former Cigarettes 0.5 6.4 S tarted: 03/03/2021 Smokeless Tobacco: Never Tobacco Cessation:Counseling Given: Not Answered Comments:Smoked from [age] years old quit in 2017 and started smoking in February of 2021 [...] on file Sexual Orientation Not on file documented as of this encounter Last Filed Vital Signs Vital Sign Reading Time Taken Comments Blood Pressure 122/84 12/15/2024 1:50 PM EDT Pulse - - Temperature 36.8 C (98.2 F) 12/15/2024 1:50 PM EDT Respiratory Rate - - Oxygen Saturation - - Inhaled Oxygen Concentration - - Weight 102.1 kg (225 lb) 12/15/2024 1:50 PM EDT Height 160 cm (5' 3 ) 12/15/2024 1:50 PM EDT Body Mass Index 39.86 12/15/2024 1:50 PM EDT documented in this encounter Functional Status * Is the person deaf or does he/she have serious difficulty hearing? Answer Date of Assessment Author No 04/05/2024 10:22 AM Florinda Watson RN * Is the person blind or does he/she have serious difficulty seeing even when wearing glasses? Answer Date of Assessment Author No 04/05/2024 10:22 AM Florinda Watson RN * Does this person have serious difficulty walking or climbing stairs? Answer Date of Assessment Author No 04/05/2024 10:22 AM Florinda Watson RN * Does this person have difficulty dressing or bathing? Answer Date of Assessment Author No 04/05/2024 10:22 AM Florinda Watson RN * Because of a physical, mental or emotional condition, does this person have difficulty doing errands alone such as visiting a doctor's office or shopping? Answer Date of Assessment Author No 04/05/2024 10:22 AM Florinda Watson RN documented as of this encounter Mental Status * Because of a physical, mental or emotional condition, does this person have serious difficulty concentrating, remembering or making decisions? Answer Entry Date Author No 04/05/2024 10:22 AM Florinda Watson RN documented in this encounter Ordered Prescriptions Prescription Sig Dispense Quantity Refills Last Filled Start Date End Date methylPREDNISolon e (MEDROL DOSPACK) 4 mg Oral Tablets, Dose Pack See package instructions 21 Tablet 12/15/2024 documented in this encounter Progress Notes * Vito Brooks DO - 12/15/2024 1:30 PM EDT Vitals: 12/15/24 1350 BP: 122/84 Temp: 98.2 ??F (36.8 ??C) TempSrc: Tympanic Weight: 225 lb (102.1 kg) Height: 5' 3 (1.6 m) Body mass index is 39.86 kg/m??. SUBJECTIVE: Chief Complaint Patient presents with ED Follow-up HPI: HPI Presents today for f/u from ED. States had back and shoulder pain while cooking. Denies trauma. Review of Systems Constitutional: Negative for fatigue and fever. Respiratory: Negative for cough and shortness of breath. Cardiovascular: Negative for chest pain. Gastrointestinal: Negative for abdominal pain and vomiting. Musculoskeletal: Positive for back pain. Skin: Negative for rash. Neurological: Negative for headaches. Psychiatric/Behavioral: The patient is not nervous/anxious. OBJECTIVE: Physical Exam Constitutional: Appearance: Normal appearance. Cardiovascular: Rate and Rhythm: Normal rate and regular rhythm. Heart sounds: Normal heart sounds. No murmur heard. Pulmonary: Effort: Pulmonary effort is normal. Breath sounds: Normal breath sounds. Abdominal: General: There is no distension. Palpations: Abdomen is soft. Neurological: Mental Status: She is alert and oriented to person, place, and time. Psychiatric: Mood and Affect: Mood normal. Behavior: Behavior normal. Assessment & Plan Acute pain of right shoulder Resolved, nsaids if recurs Above problems were discussed with patient and all are stable except otherwise noted. Continue medications as prior. Refills done as requested. Blood work done. Will adjust medications by phone as needed based on lab results and as noted. Follow up for any changes and as directed Educated patient regarding the care plan and instructions listed on the After Visit Summary [AVS] for today's visit. The patient verbalized full understanding of the care plan and instructions given on the AVS for today's visit. documented in this encounter Plan of Treatment Not on file documented as of this encounter Goals Goal Patient Goal Type Associated Problems Recent Progress Patient-Stated? Author Blood Pressure < 140/90 Blood Pressure 122/84(2024 1:50 PM EDT) No Vivian Palmer RMA Maintain a healthy diet, exercise regularly and maintain an ideal body weight General No Tia Kitchen RMA BMI (Calculated) < 30 General 39.9(12/16/19 25 1:50 PM EDT) No Vivian Palmer LIBERTY Stay Tobacco Free Lifestyle No Tia Kitchen RMIsidro HEMOGLOBIN A1C < 7.0 Result Component 5.4( 2 10:50 AM EDT) No Vivian PalmerLIBERTY documented as of this encounter Visit Diagnoses Diagnosis Acute pain of right shoulder- Primary documented in this encounter Care Teams Captain Assistant Relationship Specialty Start Date End Date Vito Brooks DO [address] [place] [address] PCP - General Family Medicine 02/26/11 Julia Sullivan MD [address] [place] [address] Consulting Physician Internal Medicine-Endocrinology , Diabetes & Metabolism 08/14/21 Belem Stone MD [address] [place] [id number] Consulting Physician Surgery 11/22/21 documented as of this encounter
--- OUTSIDE RECORDS SUMMARY | 2024-12-25 10:44 | XMS_ITS | Encounter Summary ---
Author Organization [facility] [place] [address] Care Team Providers Care Oxidation Operator Name Role Phone Vito Brooks Primary Care Provider [phone] Julia Sullivan MD Unavailable [phone] Belem Stone MD Unavailable [phone] Encounter Details Date Type Department Care Team (Latest Contact Info) Description 12/15/2024 Travel Social History Tobacco Use Types Packs/Day Years Used Date Smoking Tobacco: Former Cigarettes 0.5 6.4 S tarted: 03/03/2021 Smokeless Tobacco: Never Comments:Smoked from [age] y ears old quit in 2016 and started smoking [...] on file documented as of this encounter Functional Status * Is the [...] Florinda Watson RN documented in this encounter Plan of Treatment Not on file documented as of this encounter Goals Goal Patient Goal Type Associated Problems Recent Progress Patient-Stated? Author Blood Pressure < 140/90 Blood Pressure 122/84(2024 1:50 PM EDT) No Vivian Palemr RMA Maintain a healthy diet, exercise regularly and maintain an ideal body weight General No Tia Kitchen RMA BMI (Calculated) < 30 General 39.9(12/16/19 1:50 PM EDT) No Vivian Palmer RMA Stay Tobacco Free Lifestyle No Tia Kitchen RMA HEMOGLOBIN A1C < 7.0 Result Component 5.4( 10:50 AM EDT) No Vivian Palmer RMA documented as of this encounter Visit Diagnoses Not on filedocumented in this encounter Care Teams Oxidation Operator Relationship Specialty Start Date End Date Vito Brooks DO [address] [place] [address] PCP - General Family Medicine 02/26/11 Julia Sullivan MD [address] [place] [address] Consulting Physician Internal Medicine-Endocrinology , Diabetes & Metabolism 08/14/21 Belem Stone MD [address] [place] [address] [address] [place] [address] Consulting Physician Surgery 11/22/21 documented as of this encounter
--- OUTSIDE RECORDS SUMMARY | 2024-12-25 10:44 | XMS_ITS | Clinical Summary ---
Author Organization [facility] Address [address] [place] [address] Phone Care Team Providers Care Drawing Kiln Supervisor Name Role Phone Vito Brooks DO Primary Care Provider [phone] Julia Sullivan MD Unavailable [phone] Belem Stone MD Unavailable [phone] Allergies No known active allergies Medications * This document contains information received from the source organization and may not represent a complete record from that organization. vit [id number] ic 27 mg iron- 800 mcg Oral Tablet Take 1 Tablet by mouth daily. Active cyclobenzaprine (FLEXERIL) 5 mg Oral TabletIndicatio ns: related hip pain, antepartum Take 1 Tablet by mouth 3 times daily as needed for Muscle spasms. 30 Tablet 1 4 Active methIMAzole (TAPAZOLE) 5 mg Oral TabletIndicatio ns:Goiter, toxic diffuse Take 1 Tablet by mouth daily. 30 Tablet 6 5 Active methylPREDNISol one (MEDROL DOSPACK) 4 mg Oral Tablets, Dose Pack See package instructions 21 Tablet 5 Active Active Problems Problem Noted Date Diagnosed [...] Anatomy wnl GTT ok Tdap complete GBS 08/20/2023 05/21/2024 Assessment & Plan (03/18/2024 9:25 AM EST): The patient is due in 4 weeks Assessment & Plan (11/04/2023 3:35 PM EDT): The patient is under care of [facility] Assessment & Plan (08/20/2023 4:33 PM EDT): The patient is scheduled to see an [facility] 3 weeks Symptomatic cholelithiasis 11/23/2021 0 10/08/2023 Cholecystitis 11/21/2021 10/08/2023 Overview (11/21/2021): Added automatically from request for surgery [id number] Hyperthyroidism 06/09/2021 10/10/2021 Assessment & Plan (06/09/2021 [...] other normal , second trimester 02/12/2019 06/18/2019 Encounters Date Type Department Care Team Description 12/15/2024 1:30 PM EDT Office Visit [facility] [address] [place] [address] Cecilia, Vito, DO Acute pain of right shoulder (Primary Dx) 12/15/2024 Travel from Last 3 Months Immunizations Immunization Administration Dates Next Due DTaP [...] CHOLECYSTECTOMY ; Surgeon: Belem Stone MD; Location: [facility] OR; Service: General Medical History Medical History Date Comments Idiopathic scoliosis 02/07/2010 GERD (gastroesophageal reflux disease) 0 Vesicoureteral reflux childhood pneumothorax Pyelonephritis hx vesicouretera l reflux Thyroid disease Hyperthyroidism Family History Medical History Relation Name Comments Diabetes Father Nick Tubbs High Blood Pressure Father Nick Tubbs Substance Abuse Father Nick Tubbs Diabetes Maternal Grandfather Damion Lyons Kidney Disease Maternal Grandfather Damion Lyons Stroke [...] Vag-F orcep s N Livin g Delivery Location:[facility] 2019 Term 39w 0d 7 lb 13 oz (3.544 kg) M Vag-S pont Epidur al N Livin g 8 9 JOE ATKINSON Lily Elsai di, MD Complications:Gestational di abetes Delivery Location:[facility] 2023 Term 38w 1d 0h 06m 0h 06m 7 lb 6.5 oz (3.36 kg) F Vag-S pont Local N Livin g 8 9 Melinafelicitas Atkinson Braulio Zaidi , Delivery Location:[facility] ([facility]) Last Filed Vital Signs Vital Sign Reading Time Taken Comments Blood Pressure 122/84 12/15/2024 1:50 PM EDT Pulse 73 04/05/2024 9:44 AM EST Temperature 36.8 C (98.2 F) 12/15/2024 1:50 PM EDT Respiratory Rate 18 04/05/2024 9:44 AM EST Oxygen Saturation 100% 04/05/2024 9:44 AM EST Inhaled Oxygen Concentration - - Weight 102.1 kg (225 lb) 12/15/2024 1:50 PM EDT Height 160 cm (5' 3 ) 12/15/2024 1:50 PM EDT Body Mass Index 39.86 12/15/2024 1:50 PM EDT Plan of Treatment Health Maintenance Due Date Last Done Comments Annual Wellness Exam 11/11/2024 11/12/2023 COVID-19 Vaccine ( season) 2024 Influenza Vaccine (#1) 2024 7 (Declined), 02/23/2016 [...] EDT Supervision of other normal , antepartum [employer] CYTOLOGY REQUEST (PAP ONLY) Routine 10/08/2023 11:22 AM EDT Supervision of other normal , antepartum from Last 3 Months or Most Recently Relevant to Health Maintenance Results * [employer] CYTOLOGY REQUEST (PAP ONLY) (10/08/2023 11:22 AM EDT) CASE REPORT Gynecologic Cytology Report Case: [id number] Authorizing Provider: Yesi Wong Collected: 10/08/2023 112 DO Kim Ordering Location: [facility] Received: 10/08/2023 1122 First Screen: Karina Ervin CT Specimen: LIQUID-BASED PAP - CERVICAL/ENDOCERV ICAL, Cervix, Endocervical 10/10/2023 3:33 PM EDT [facility] PAP FINAL DIAGNOSIS Negative for intraepithelial lesion or malignancy 10/10/2023 3:33 PM EDT [facility] at 1533 EDT MICROSCOPIC DESCRIPTION Microscopic examination is performed and the findings corroborate the diagnosis. 10/10/2023 3:33 PM EDT [facility] PAP SMEAR ADEQUACY Satisfactory for evaluation 10/10/2023 3:33 PM EDT [facility] ENDOCERVICAL T-ZONE Transformation zone absent. 10/10/2023 3:33 PM EDT [facility] EMBEDDED IMAGES 3:33 PM EDT [facility] PAP DISCLAIMER The Pap Smear is a screening test that aids in the detection of cervical cancer and cancer precursors. Both false positive and false negative results can occur. The test should be used at regular intervals, and positive results should be confirmed before definitive therapy. Processed using the ThinPrep Rest Room Attendant Automated cytology screening device (Estify). 10/10/2023 3:33 PM EDT [facility] Thin Prep ENDOCERVICAL STRUCTURE / Unknown 10/08/2023 11:22 AM EDT 10/08/2023 11:22 AM EDT us Yesi Wong DO CYTOLOGY ORDERABLE S Final Result [place] [id number] * GC CHLAMYDIA THIN PREP (10/08/2023 11:22 AM EDT) Chlamydia trachomatis Not Detected Not Detected 10/09/2023 3:15 PM EDT PREFERRED LAB [facility] [employer] Neisseria gonorrhoeae Not Detected Not Detected 10/09/2023 3:15 PM EDT PREFERRED [employer] Thin Prep SPECIMEN FROM UTERINE CERVIX / Unknown 10/08/2023 11:22 AM EDT 10/08/2023 11:22 AM EDT Narrative PREFERRED [employer] - 10/09/2023 3:15 PM EDT Testing methodology is siding mechanic mediated amplification (TMA) using the Aptima Combo 2 assay from [employer]. A negative result does not completely rule [...] specimens. Detailed methodology is available upon request. us Yesi Wong DO MICROBIOLOGY - GEN ERAL ORDERABLES Final Result [facility] [employer] [address] [place] [address] , [place] [address] from Last 3 Months or Most Recently Relevant to Health Maintenance Insurance PPO [employer] PPO PPO Advance Directives For more information, please contact: [phone] * Full Code (Latest Code Status on [...] 11:25 PM 04/12/2015 12:58 PM Care Teams Drawing Kiln Supervisor Relationship Specialty Start Date End Date Vito Brooks DO [address] [place] [address] PCP - General Family Medicine 02/26/11 Julia Sullivan MD [address] [place] [address] Consulting Physician Internal Medicine-Endocrinology , Diabetes & Metabolism 08/14/21 Belem Stone MD [address] [place] [id number] Consulting Physician Surgery 11/22/21
--- NOTE | 2024-12-25 11:00 | CA_ITS ---
APPROVED REPORT EXAM: Comprehensive 2D, Doppler, and color-flow Echocardiogram [employer]ators Supervisor: Solange Guerrero RDCS Ht: 5 ft 3 in Wt: 227lbs BSA: 2.04 BP: 132/85 mmHg Indications: Dyspnea M-Mode Dimensions RVDd 2.18 cm (0.9-2.6) LA Diam 3.48 cm (1.9-4.0) LVDd 5.44 cm (3.5-5.7) LVDs 3.65 cm (3.5-5.7) IVSd 0.72 cm (0.6-1.1) PWd 0.86 cm (0.6-1.1) EF (Teich) 60.80% FS 32.90% EDV (Teich) 143.70 mL TAPSE 2.37 (<1.7) ESV (Teich) 56.30 mL LV Diastology E Decel Time 160 (160-240 msec) E/A Ratio 2.8 Aortic Valve AI PHT 620.00 ms Mitral Valve MV E Max Timothy. 95.0 (40-130 cm/s) MV A Velocity 34.0 (40-130 cm/s) E/A Ratio 2.82 MV PHT 47.0 ms Tricuspid Valve TR P. Velocity 250.00 cm/s RAP Estimate 10.00 mmHg RVSP 34.90 mmHg Left Ventricle The left ventricle is normal size. Left ventricular systolic function is normal. The left ventricular ejection fraction is within the normal range. There is normal left ventricular wall thickness. There is normal LV segmental wall motion. The left ventricular diastolic function is normal. LVEF is 55% Right Ventricle The right ventricle is normal size. The right ventricular systolic function is normal. Atria The left atrium size is normal. The right atrium size is normal. There is no color Doppler evidence of interatrial shunt. Aortic Valve The aortic valve opens well. There is no hemodynamically significant aortic valvular stenosis. Mild aortic regurgitation is present. Mitral Valve The mitral valve is normal in structure. No evidence of mitral valve stenosis. Mild mitral regurgitation is present. Tricuspid Valve The tricuspid valve leaflets are thin and pliable. Mild tricuspid regurgitation. RVSP is 20-25 mmHg. Pulmonic Valve The pulmonary valve is grossly normal in structure. Trace pulmonic valve regurgitation is present. Great Vessels The aortic root is normal in size. IVC is normal in size and collapses >50% with inspiration. Pericardium There is no pericardial effusion. Other Information Study Quality: Fair Conclusion Normal biventricular systolic function. Mild AI, mild MR, mild TR. Electronically signed by : Latonya Benitez MD 12/28/2024 19:27:32
== END 2024-12-25 23:59 | disposition home or self-care (01) ==
PROVIDERS: PCP Family Medicine; Visit Provider Nurse Practitioner
DX: I08.3 Combined rheumatic disorders of mitral, aortic and tricuspid valves (principal)
CPT/HCPCS: 93306